=== PATIENT | male | born 1990 | race Caucasian/White ===

== ENCOUNTER 2018-05-03 17:13 | Emergency (ER) | payer SELFPAY ==
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
[2018-05-03] MEDS ORDERED: HYDROCODONE/APAP 5/325 MG TAB ONE (18:40)
[2018-05-03] MEDS ORDERED: IBUPROFEN 400 MG TAB ONE (18:40)
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
[2018-05-03 20:27] VITALS: BP 124/75; TEMP 97.7; O2SAT 98
== END 2018-05-03 19:01 | disposition home or self-care (01) ==
LOC: ER 17:13
DX: S92.412A Displaced fracture of proximal phalanx of left great toe, initial encounter for closed fracture (principal); V28.0XXA Motorcycle driver injured in noncollision transport accident in nontraffic accident, initial encounter; F17.210 Nicotine dependence, cigarettes, uncomplicated
CPT/HCPCS: 99284

== ENCOUNTER 2018-05-22 15:25 | Emergency (ER) | payer SELFPAY ==
[2018-05-22] MEDS ORDERED: MORPHINE 4 MG/ML SYR ONE ×2 (15:42→16:26)
[2018-05-22] MEDS ORDERED: ONDANSETRON 4 MG/2 ML VIAL ONE (15:42)
[2018-05-22] MEDS ORDERED: CEFAZOLIN/SWI 1gm 1 GM/10 ML SYR IVP ONE (15:50)
[2018-05-22 15:55] LABS: Absolute Monocytes 0.7 K/uL (0.1-1.3); Absolute Neutrophil 2.4 K/uL (1.8-8.0); Basophils % 0.8 % (0-1.3); Eosinophils % 1.5 % (0-4.4); Hematocrit 44.2 % (39.6-49.0); Lymphocytes % 47.7 % (15.3-44.8); MCH 31.6 pg (27.0-35.0); MCV 93.4 fL (80-100); MPV 9.1 fL (7.6-11.3); Monocytes % 11.6 % (3.3-12.3); RBC Red Blood Cell Count 4.73 M/uL (4.33-5.43)
[2018-05-22] MEDS ORDERED: CEFAZOLIN/SWI 1gm 1 GM/10 ML SYR ONE (16:05)
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
[2018-05-22 16:08] LABS: BUN Blood Urea Nitrogen 16 mg/dL (7-18); Bicarbonate 28 mmol/L (21-32); Glucose Level 120 mg/dL (74-106); Potassium 3.5 mmol/L (3.5-5.1); Sodium Level 141 mmol/L (136-145)
[2018-05-22] MEDS ORDERED: MEPERIDINE HCL 50 MG/ML AMP ONE (16:29)
[2018-05-22] MEDS ORDERED: MEPERIDINE HCL 25 MG/0.5 ML ONE (16:29)
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
[2018-05-22] MEDS ORDERED: FENTANYL CITR 100 MCG/2 ML ONE (17:14)
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
[2018-05-22 17:58] VITALS: O2SAT 100
[2018-05-22 18:00] VITALS: BP 123/85; TEMP 97.8
== END 2018-05-22 18:03 | disposition home or self-care (01) ==
LOC: ER 15:25
DX: S60.519A Abrasion of unspecified hand, initial encounter (principal); S80.219A Abrasion, unspecified knee, initial encounter; V28.4XXA Motorcycle driver injured in noncollision transport accident in traffic accident, initial encounter
CPT/HCPCS: 36415; 70450; 71260; 72125; 74177; 80048; 85025; 86850; 86900; 86901; 96374; 96375; 99285; J0690; J2175; J2405; J3010; Q9967

== ENCOUNTER 2018-11-14 13:49 | Emergency (ER) | payer SELFPAY ==
--- NOTE | 2018-11-14 15:40 | RAD REPORT ---
EXAM DESCRIPTION: US - Scrotum Testicles - 11/14/2018 3:16 pm CLINICAL HISTORY: Scrotal pain COMPARISON: None FINDINGS: Right testicle measures 5.3 x 2.4 x 4.6 centimeters. Echotexture is homogeneous. Normal bl ood flow Left testicle measures 5.3 x 1.9 x 3.5 centimeters. Echotexture is homogeneous. Normal blood flow The epididymides are normal in size and echotexture. Normal blood flow is seen. Two right spermatoceles with the largest measuring 8 millimeters Right varicocele IMPRESSION: Right varicocele Right spermatoceles
--- NOTE | 2018-11-14 17:03 | ER ---
Nurse's Notes [facility] Name: Tom De Jesus Age: 28 yrs Sex: Male : 1990 Arrival Date: 11/14/2018 Time: 13:51 Bed 6 Private MD: Diagnosis: Spermatocele of epididymis, unspecified;Varicocele Presentation: 11/14 14:01 Presenting complaint: Patient states: pain around groin area for the past week, ch happened while I was lifting something heavy. Transition of care: patient was not received from another setting of care. Onset of symptoms was November 07, 2018. Risk Assessment: Do you want to hurt yourself or someone else? Patient reports no desire to harm self or others. Initial Sepsis Screen: Does the patient meet any 2 criteria? No. Patient's initial sepsis screen is negative. Does the patient have a suspected source of infection? No. Patient's initial sepsis screen is negative. Care prior to arrival: None. 14:01 Method Of Arrival: Ambulatory 14:01 Acuity: STEVE 4 ch Triage Assessment: 14:02 General: Appears in no apparent distress. comfortable, Behavior is calm, cooperative, ch appropriate for age. Pain: Complains of pain in pelvis Pain currently is 4 out of 10 on a pain scale. Historical: - Allergies: 14:02 No Known Allergies; - Home Meds: 14:02 None [Active]; ch - PMHx: 14:02 None; ch - PSHx: 14:02 None; - Immunization history:: Adult Immunizations up to date, Flu vaccine is not up to date. - Social history:: Smoking status: Patient uses tobacco products, smokes one-half pack cigarettes per day, Patient uses alcohol, occasionally. - Ebola Screening: : Patient negative for fever greater than or equal to 101.5 degrees Fahrenheit, and additional compatible Ebola Virus Disease symptoms Patient denies exposure to infectious person Patient denies travel to an Ebola-affected area in the 21 days before illness onset No symptoms or risks identified at this time. Screenin:39 Abuse screen: Denies threats or abuse. Nutritional screening: No deficits noted. tw2 Tuberculosis screening: No symptoms or risk factors identified. Fall Risk None identified. Assessment: 14:39 General: Appears in no apparent distress. Behavior is appropriate for age. Pain: tw2 Complains of pain in pelvis. Neuro: Level of Consciousness is awake, alert, obeys commands, Oriented to person, place, time, situation. Cardiovascular: Patient's skin is warm and dry. Respiratory: Airway is patent Respiratory effort is even, unlabored, Respiratory pattern is regular, symmetrical. GI: No signs and/or symptoms were reported involving the gastrointestinal system. : Reports groin pain after lifting something heavy a week ago. EENT: No signs and/or symptoms were reported regarding the EENT system. Derm: No signs and/or symptoms reported regarding the dermatologic system. Musculoskeletal: Range of motion: intact in all extremities. 14:56 Reassessment: Patient appears in no apparent distress at this time. No changes from tw2 previously documented assessment. Patient and/or family updated on plan of care and expected duration. Pain level reassessed. Patient is alert, oriented x 3, equal unlabored respirations, skin warm/dry/pink. 15:52 Reassessment: Patient appears in no apparent distress at this time. No changes from tw2 previously documented assessment. Patient and/or family updated on plan of care and expected duration. Pain level reassessed. Patient is alert, oriented x 3, equal unlabored respirations, skin warm/dry/pink. 17:14 Reassessment: Patient appears in no apparent distress at this time. No changes from tw2 previously documented assessment. Patient and/or family updated on plan of care and expected duration. Pain level reassessed. Patient is alert, oriented x 3, equal unlabored respirations, skin warm/dry/pink. Vital Signs: 14:02 BP 121 / 78; Pulse 64; Resp 14; Temp 99.7; Pulse Ox 99% on R/A; Weight 70.31 kg; Height 5 ft. 10 in. (177.80 cm); Pain 5/10; 14:56 BP 115 / 70; Pulse 69; Resp 17; Pulse Ox 98% on R/A; tw2 15:52 BP 129 / 76; Pulse 54; Resp 16; Pulse Ox 99% on R/A; tw2 17:14 BP 122 / 77; Pulse 62; Resp 17; Pulse Ox 99% on R/A; tw2 14:02 Body Mass Index 22.24 (70.31 kg, 177.80 cm) ED Course: 13:51 Patient arrived in ED. as 14:01 Triage completed. ch 14:02 Arm band placed on left wrist. Patient placed in an exam room, on a stretcher. ch 14:04 Placed in gown. Bed in low position. Adult w/ patient. Pulse ox on. NIBP on. tw2 14:09 Treasure Restrepo RN is Primary Nurse. tw2 14:29 Angel Stanton MD is Attending Physician. kdr 15:16 Scrotum Testicles In Process Unspecified. EDMS 17:15 No provider procedures requiring assistance completed. Patient did not have IV access tw2 during this emergency room visit. Administered Medications: 17:11 Drug: Offerle (7.5 mg-325 mg) 1 tabs Route: PO; tw2 17:15 Follow up: Response: No adverse reaction; Pain is decreased tw2 Outcome: 17:03 Discharge ordered by . kdr 17:15 Discharged to home ambulatory, with significant other. tw2 17:15 Condition: stable 17:15 Discharge instructions given to patient, significant other, Instructed on discharge instructions, follow up and referral plans. no drinking with medication, no driving heavy equipment, medication usage, Demonstrated understanding of instructions, follow-up care, medications, Prescriptions given X 1. 17:15 Patient left the ED. tw2 Signatures: Dispatcher [employer] EDMS Susan Yun, ANNA CASTILLO Angel Stanton MD MD kdr Symone Stubbs as Treasure Restrepo RN RN tw2
--- NOTE | 2018-11-14 17:03 | EDPHYS ---
Physician Documentation [facility] Name: Tom De Jesus Age: 28 yrs Sex: Male : 1990 Arrival Date: 11/14/2018 Time: 13:51 Bed 6 Private MD: ED Physician Angel Stanton HPI: 11/14 17:38 This 28 yrs old Male presents to ER via Ambulatory with complaints of Groin kdr Pain. 17:38 The patient presents with scrotal pain, of the right side, in the area of the kdr epidydimis, without swelling, without erythema. Onset: The symptoms/episode began/occurred suddenly, 5 day(s) ago. Modifying factors: The symptoms are alleviated by remaining still, the symptoms are aggravated by movement, pressure. Pain is worse at night - wakes him up at night. Historical: - Allergies: 14:02 No Known Allergies; ch - Home Meds: 14:02 None [Active]; ch - PMHx: 14:02 None; ch - PSHx: 14:02 None; ch - Immunization history:: Adult Immunizations up to date, Flu vaccine is not up to date. - Social history:: Smoking status: Patient uses tobacco products, smokes one-half pack cigarettes per day, Patient uses alcohol, occasionally. - Ebola Screening: : Patient negative for fever greater than or equal to 101.5 degrees Fahrenheit, and additional compatible Ebola Virus Disease symptoms Patient denies exposure to infectious person Patient denies travel to an Ebola-affected area in the 21 days before illness onset No symptoms or risks identified at this time. ROS: 17:38 Constitutional: Negative for fever, chills, and weight loss, Eyes: Negative for injury, kdr pain, redness, and discharge. 17:38 : Positive for testicular pain of the right testicle and right femoral area. Exam: 17:38 Constitutional: This is a well developed, well nourished patient who is awake, alert, kdr and in no acute distress. 17:38 : Male external genitalia: Circumcision noted. penile discharge, is absent, tenderness, is palpated in the right inguinal area, of the epididymis area, that is mild. Vital Signs: 14:02 BP 121 / 78; Pulse 64; Resp 14; Temp 99.7; Pulse Ox 99% on R/A; Weight 70.31 kg; Height 5 ft. 10 in. (177.80 cm); Pain 5/10; 14:56 BP 115 / 70; Pulse 69; Resp 17; Pulse Ox 98% on R/A; tw2 15:52 BP 129 / 76; Pulse 54; Resp 16; Pulse Ox 99% on R/A; tw2 17:14 BP 122 / 77; Pulse 62; Resp 17; Pulse Ox 99% on R/A; tw2 14:02 Body Mass Index 22.24 (70.31 kg, 177.80 cm) MDM: 17:03 Patient medically screened. kdr 17:38 Data reviewed: vital signs, nurses notes, radiologic studies. Counseling: I had a kdr detailed discussion with the patient and/or guardian regarding: the historical points, exam findings, and any diagnostic results supporting the discharge/admit diagnosis, radiology results, the need for outpatient follow up. 11/14 16:23 Order name: Urine Dipstick--Ancillary (enter results) ag 11/14 14:52 Order name: US Scrotum Testicles; Complete Time: 16:12 kdr 11/14 14:52 Order name: Urine Dipstick-Ancillary (obtain specimen); Complete Time: 16:17 kdr Administered Medications: 17:11 Drug: Clarita (7.5 mg-325 mg) 1 tabs Route: PO; tw2 17:15 Follow up: Response: No adverse reaction; Pain is decreased tw2 Disposition: 11/14/18 17:03 Discharged to Home. Impression: Spermatocele of epididymis, unspecified, Varicocele. - Condition is Stable. - Discharge Instructions: Testicular Self-Exam, Varicocele, Spermatocele. - Prescriptions for Tylenol- Codeine #3 300-30 mg Oral Tablet - take 2 tablets by ORAL route every 6 hours As needed; 16 tablet. - Medication Reconciliation Form, Thank You Letter, Prescription Opioid Use, Work release form form. - Follow up: Private Physician; When: 2 - 3 days; Reason: If symptoms return, Further diagnostic work-up, Recheck today's complaints, Continuance of care, Re-evaluation by your physician. - Problem is new. - Symptoms have improved. Signatures: Dispatcher [employer] EDSusan Aldridge RN RN Angel Stanton MD MD [facility] Restrepo, Treasure, RN RN tw2 Corrections: (The following items were deleted from the chart) 17:15 17:03 11/14/2018 17:03 Discharged to Home. Impression: Spermatocele of epididymis, tw2 unspecified; Varicocele. Condition is Stable. Forms are Medication Reconciliation Form, Thank You Letter, Antibiotic Education, Prescription Opioid Use. Follow up: Private Physician; When: 2 - 3 days; Reason: If symptoms return, Further diagnostic work-up, Recheck today's complaints, Continuance of care, Re-evaluation by your physician. Problem is new. Symptoms have improved. kdr
[2018-11-14] MEDS ORDERED: HYDROCODONE/APAP 7.5/325 MG TAB ONE (17:16)
[2018-11-14 17:23] VITALS: TEMP 99.7
[2018-11-14 17:25] VITALS: O2SAT 99
[2018-11-14 17:26] VITALS: BP 122/77
[2018-11-14 20:49] LABS: Urine Blood NEGATIVE (NEG); Urine Glucose NEGATIVE (NEG); Urine Protein NEGATIVE (NEG)
== END 2018-11-14 17:15 | disposition home or self-care (01) ==
LOC: ER 13:49
DX: N43.40 Spermatocele of epididymis, unspecified (principal); I86.1 Scrotal varices; F17.210 Nicotine dependence, cigarettes, uncomplicated
CPT/HCPCS: 76870; 81003; 99284

== ENCOUNTER 2022-05-19 09:09 | Emergency (ER) | payer SELFPAY ==
[2022-05-19 10:18] LABS: Absolute Lymphocytes (CBC) 1.7 K/uL (0.7-4.9); Lymphocytes % 22.5 % (15.3-44.8); MCV 92.1 fL (80-100); MPV 8.4 fL (7.6-11.3); RBC Red Blood Cell Count 4.56 M/uL (4.33-5.43)
--- NOTE | 2022-05-19 10:34 | RAD REPORT ---
EXAM DESCRIPTION: CT - Stone Protocol - 05/19/2022 10:17 am CLINICAL HISTORY: Flank pain. flank pain COMPARISON: No comparisons TECHNIQUE: Axial images were obtained without oral or IV contrast. Lack of contrast limits solid org an and vascular assessment. The [id number] spans the entirety of the system partially obscuring uppermost abdomen and lung bases. Coronal reformatted images were obtained and reviewed. All CT scans are performed using dose optimization technique as appropriate and may include automated exposure control or mA/KV adjustment according to patient size. FINDINGS: The lower lung anderson are clear. Imaged portions of the liver and spleen show no suspicious findings on non-contrast imaging. The panc reas and adrenal glands are normal. No pathologic lymphadenopathy in the abdomen or pelvis. No urinary tract stones or obstructive uropathy. No bowel obstruction, free air, free fluid or abscess. Normal appendix noted. No significant bony abnormality. IMPRESSION: No urinary tract stones or obstructive uropathy.
[2022-05-19 10:36] LABS: Albumin 4.1 g/dL (3.4-5.0); Bilirubin Total 0.6 mg/dL (0.2-1.0); Potassium 3.9 mmol/L (3.5-5.1); Protein, Total 8.3 g/dL (6.4-8.2)
--- NOTE | 2022-05-19 10:55 | RAD REPORT ---
EXAM DESCRIPTION: RAD - Chest Single View - 05/19/2022 10:38 am CLINICAL HISTORY: CHEST PAIN Chest pain. COMPARISON: No comparisons FINDINGS: Portable technique limits examination quality. The lungs are grossly clear. The heart is normal in size. No displaced fractures. IMPRESSION: No acute intrathoracic process suspected.
[2022-05-19 11:25] LABS: Urine Blood Negative (Negative); Urine Glucose Negative (Negative); Urine Protein Negative (Negative); Urine Specific Gravity 1.015 (1.005-1.030)
[2022-05-19 11:40] LABS: Urine Amorphous Sediment TRACE /HPF (NONE SEEN); Urine Bacteria <20 /HPF (NONE SEEN); Urine RBC NONE SEEN /HPF (NONE SEEN)
[2022-05-19] MEDS ORDERED: NA CHLORIDE 0.9% 1,000 ML ONE (12:00)
[2022-05-19] MEDS ORDERED: KETOROLAC 30 MG/ML INJ ONE (12:00)
[2022-05-19] MEDS ORDERED: CYCLOBENZAPRINE 10 MG TAB ONE (12:00)
--- NOTE | 2022-05-19 12:59 | EDPHYS ---
Physician Documentation [facility] Name: Tom De Jesus Age: 32 yrs Sex: Male : 1990 Arrival Date: 05/19/2022 Time: 09:25 Bed 8 Private MD: ED Physician Festus Sweeney HPI: 05/19 10:06 This 32 yrs old Male presents to ER via Ambulatory with complaints of bodyaches, Pain pm1 All Over. 10:06 The patient presents with pain that is acute, with no known mechanism of injury. The pm1 symptoms are located in the low back area and mid back area. Onset: The symptoms/episode began/occurred 1 week(s) ago. The pain does not radiate. Associated signs and symptoms: Pertinent positives: Bodyaches, darkened urine, Pertinent negatives: abdominal pain, dysuria, fever, numbness, tingling, weakness. The problem was sustained from unknown cause, and patient are concerned that he is suffering from kidney stones. Patient without prior ihistory. Historical: - Allergies: 10:08 No Known Allergies; jl7 - Home Meds: 10:08 None [Active]; jl7 - PMHx: 10:08 None; jl7 - PSHx: 10:08 None; jl7 - Immunization history:: Client reports having NOT received the Covid vaccine. - Social history:: Smoking status: Patient reports the use of cigarette tobacco products, smokes one pack cigarettes per day. ROS: 10:29 Eyes: Negative for injury, pain, redness, and discharge, ENT: Negative for injury, pm1 pain, and discharge, Cardiovascular: Negative for chest pain, palpitations, and edema, Respiratory: Negative for shortness of breath, cough, wheezing, and pleuritic chest pain, Abdomen/GI: Negative for abdominal pain, nausea, vomiting, diarrhea, and constipation, Back: Negative for injury and pain, MS/Extremity: Negative for injury and deformity, Skin: Negative for injury, rash, and discoloration. 10:29 Constitutional: Positive for body aches, Negative for fever, poor PO intake. 10:29 Back: Positive for of the left low back, left mid back, right mid back and right low back, pain. 10:29 Neuro: Positive for headache, Negative for numbness, tingling, weakness. 10:29 All other systems are negative. Exam: 10:29 Constitutional: This is a well developed, well nourished patient who is awake, alert, pm1 and in no acute distress. Cardiovascular: Regular rate and rhythm with a normal S1 and S2. No gallops, murmurs, or rubs. Normal PMI, no JVD. No pulse deficits. Respiratory: Lungs have equal breath sounds bilaterally, clear to auscultation and percussion. No rales, rhonchi or wheezes noted. No increased work of breathing, no retractions or nasal flaring. Abdomen/GI: Soft, non-tender, with normal bowel sounds. No distension or tympany. No guarding or rebound. No evidence of tenderness throughout. Skin: Warm, dry with normal turgor. Normal color with no rashes, no lesions, and no evidence of cellulitis. MS/ Extremity: Pulses equal, no cyanosis. Neurovascular intact. Full, normal range of motion. 10:29 Eyes: Exam is negative for acute changes, Pupils: no acute changes, Extraocular movements: no acute changes, Conjunctiva: no acute changes, no injection. 10:29 ENT: Exam is negative for acute changes, Mouth: no acute changes, Lips: normal, moist, Oral mucosa: normal, pink and intact, moist. 10:29 Neck: Exam negative for acute changes. 10:29 Back: pain, that is mild, of the low back area, mid back area, left low back and right low back. 10:29 Neuro: Exam negative for acute changes, Orientation: is normal, Mentation: is normal, Motor: is normal, moves all fours. Vital Signs: 10:03 BP 111 / 79; Pulse 66; Resp 18; Temp 98.3(O); Pulse Ox 100% on R/A; Weight 68.04 kg mb7 (R); Height 5 ft. 10 in. (177.80 cm) (R); 12:00 BP 122 / 79; Pulse 86; Resp 18; Pulse Ox 100% on R/A; ld1 10:03 Body Mass Index 21.52 (68.04 kg, 177.80 cm) mb7 MDM: 09:51 Patient medically screened. pm1 11:22 Data reviewed: vital signs. Data interpreted: Pulse oximetry: on room air is 100 %. pm1 Interpretation: normal. 12:58 Counseling: I had a detailed discussion with the patient and/or guardian regarding: the pm1 historical points, exam findings, and any diagnostic results supporting the discharge/admit diagnosis, lab results, radiology results, the need for outpatient follow up, to return to the emergency department if symptoms worsen or persist or if there are any questions or concerns that arise at home. 05/19 10:01 Order name: CBC with Diff; Complete Time: 10:37 pm05/19 10:01 Order name: CMP; Complete Time: 10:37 pm05/19 10:01 Order name: Urine Microscopic Only; Complete Time: 11:42 pm05/19 10:02 Order name: COVID-19 SARS RT PCR (Document "Date of Onset" if Symptomatic); Complete pm1 Time: 12:58 05/19 10:02 Order name: Flu; Complete Time: 11:11 pm05/19 10:02 Order name: Strep; Complete Time: 11:11 pm05/19 10:01 Order name: CT Stone Protocol; Complete Time: 10:37 pm05/19 10:01 Order name: Chest Single View XRAY; Complete Time: 11:11 pm05/19 10:58 Order name: Throat Culture [facility] 05/19 11:25 Order name: Urine Dipstick-Ancillary; Complete Time: 11:27 [facility] 05/19 11:43 Order name: Urine Culture [facility] 05/19 10:01 Order name: IV Saline Lock; Complete Time: 11:26 pm05/19 10:01 Order name: Labs collected and sent; Complete Time: 11:26 pm05/19 10:01 Order name: Urine Dipstick-Ancillary (obtain specimen); Complete Time: 11:26 pm05/19 11:23 Order name: Ice pack; Complete Time: 11:51 pm1 Administered Medications: 12:00 Drug: NS 0.9% 1000 ml Route: IV; Rate: 1 bolus; Site: right antecubital; ld1 12:00 Drug: TORadol (ketorolac) 30 mg Route: IVP; Site: right antecubital; ld1 12:00 Drug: Flexeril (cyclobenzaprine) 10 mg Route: PO; ld1 Disposition: 14:11 Co-signature as Attending Physician, Festus CHEW was immediately available on-site ms3 in the Emergency Department for consultation in the care of the patient.. Disposition Summary: 05/19/22 12:59 Discharge Ordered Location: Home pm1 Problem: new pm1 Symptoms: have improved pm1 Condition: Stable pm1 Diagnosis - Coronavirus infection, unspecified pm1 Followup: pm1 - With: Emergency Department - When: As needed - Reason: Worsening of condition Followup: pm1 - With: Private Physician - When: 2 - 3 days - Reason: Recheck today's complaints, Continuance of care, Re-evaluation by your physician Discharge Instructions: - Discharge Summary Sheet pm1 - COVID-19 pm1 - COVID-19 Frequently Asked Questions pm1 - 10 Things You Can Do to Manage Your COVID-19 Symptoms at Home - [facility] [place] pm1 - COVID-19: Quarantine vs. Isolation - [facility] [place] pm1 Forms: - Medication Reconciliation Form pm1 - Thank You Letter pm1 - Antibiotic Education pm1 - Prescription Opioid Use pm1 Signatures: Dispatcher [employer] EDMS Epifanio Craig, AUGUST DIRECTOR OF MEDICAL REVIEW pm1 Ruthann Stearns RN RN jl7 Festus Sweeney DO DO ms3 Rebecca Connelly RN RN ld1 Corrections: (The following items were deleted from the chart) 12:59 11:22 Counseling: I had a detailed discussion with the patient and/or guardian pm1 regarding: the historical points, exam findings, and any diagnostic results supporting the discharge/admit diagnosis, lab results, radiology results, the need for outpatient follow up, a family practitioner, to return to the emergency department if symptoms worsen or persist or if there are any questions or concerns that arise at home, pm1
--- NOTE | 2022-05-19 12:59 | ER ---
Nurse's Notes [facility] Name: Tom De Jesus Age: 32 yrs Sex: Male : 1990 Arrival Date: 05/19/2022 Time: 09:25 Bed 8 Private MD: Diagnosis: Coronavirus infection, unspecified Presentation: 05/19 10:06 Chief complaint: Patient states: Body aches x 1 week. Coronavirus screen: Vaccine jl7 status: Patient reports being unvaccinated. muscle pain, Client presents with at least one sign or symptom that may indicate coronavirus-19. Standard/surgical mask placed on the client. Provider contacted for isolation considerations. Ebola Screen: No symptoms or risks identified at this time. Initial Sepsis Screen: Does the patient meet any 2 criteria? No. Patient's initial sepsis screen is negative. Does the patient have a suspected source of infection? No. Patient's initial sepsis screen is negative. Risk Assessment: Do you want to hurt yourself or someone else? Patient reports no desire to harm self or others. Onset of symptoms was May 05, 2022. 10:06 Method Of Arrival: Ambulatory jl7 10:06 Acuity: STEVE 3 jl7 Triage Assessment: 10:08 General: Appears in no apparent distress. uncomfortable, Behavior is calm, cooperative, jl7 appropriate for age. Pain: Complains of pain in all over Pain currently is 7 out of 10 on a pain scale. Historical: - Allergies: 10:08 No Known Allergies; jl7 - Home Meds: 10:08 None [Active]; jl7 - PMHx: 10:08 None; jl7 - PSHx: 10:08 None; jl7 - Immunization history:: Client reports having NOT received the Covid vaccine. - Social history:: Smoking status: Patient reports the use of cigarette tobacco products, smokes one pack cigarettes per day. Screenin:00 Abuse screen: Denies threats or abuse. Denies injuries from another. Nutritional ld1 screening: No deficits noted. Tuberculosis screening: No symptoms or risk factors identified. Fall Risk None identified. Assessment: 12:00 General: Appears in no apparent distress. uncomfortable, Behavior is calm, cooperative, ld1 appropriate for age. Pain: Complains of pain in all over Pain does not radiate. Pain currently is 6 out of 10 on a pain scale. Neuro: Level of Consciousness is awake, alert, obeys commands, Oriented to person, place, time, situation. Cardiovascular: Capillary refill < 3 seconds Patient's skin is warm and dry. Respiratory: Airway is patent Respiratory effort is even, unlabored. GI: Abdomen is flat, non-distended. : No signs and/or symptoms were reported regarding the genitourinary system. EENT: No signs and/or symptoms were reported regarding the EENT system. Derm: No signs and/or symptoms reported regarding the dermatologic system. Musculoskeletal: No signs and/or symptoms reported regarding the musculoskeletal system. Vital Signs: 10:03 BP 111 / 79; Pulse 66; Resp 18; Temp 98.3(O); Pulse Ox 100% on R/A; Weight 68.04 kg [facility] (R); Height 5 ft. 10 in. (177.80 cm) (R); 12:00 BP 122 / 79; Pulse 86; Resp 18; Pulse Ox 100% on R/A; ld1 10:03 Body Mass Index 21.52 (68.04 kg, 177.80 cm) [facility] ED Course: 09:25 Patient arrived in ED. am2 09:29 Epifanio Craig NP is PHCP. pm1 09:29 Festus Sweeney DO is Attending Physician. pm1 10:03 Patient has correct armband on for positive identification. 7 10:08 Triage completed. jl7 10:08 Arm band placed on right wrist. Patient placed in waiting room, Patient notified of [facility] wait time. 10:10 Initial lab(s) drawn, by ED staff, sent to lab. Inserted saline lock: 20 gauge in right jl antecubital area, using aseptic technique. Blood collected. inserted by ANUJ Romano. 10:20 CT Stone Protocol In Process Unspecified. EDMS 10:39 Chest Single View XRAY In Process Unspecified. EDMS 11:26 Urine Microscopic Only Sent. 7 11:51 Rebecca Connelly, ANNA is Primary Nurse. ld1 11:51 COVID-19 SARS RT PCR (Document "Date of Onset" if Symptomatic) Sent. ld1 12:00 No provider procedures requiring assistance completed. ld1 13:16 IV discontinued, intact, bleeding controlled, No redness/swelling at site. Pressure eh3 dressing applied. Administered Medications: 12:00 Drug: NS 0.9% 1000 ml Route: IV; Rate: 1 bolus; Site: right antecubital; ld1 12:00 Drug: TORadol (ketorolac) 30 mg Route: IVP; Site: right antecubital; ld1 12:00 Drug: Flexeril (cyclobenzaprine) 10 mg Route: PO; ld1 Medication: 12:00 VIS not applicable for this client. ld1 Outcome: 12:59 Discharge ordered by MD. pm1 13:17 Discharged to home ambulatory. eh3 13:17 Condition: stable 13:17 Discharge instructions given to patient, family, Instructed on discharge instructions, follow up and referral plans. Demonstrated understanding of instructions, follow-up care. 13:17 Patient left the ED. eh3 Signatures: Dispatcher [employer] EDMS Epifanio Craig, AUGUST MANUFACTURING QUALITY INSPECTOR pm1 Ruthann Stearns RN RN jl7 Karissa Avendaño Lauren, RN RN ld1 Danelle Andrews mb7 Padmini Fierro eh3
[2022-05-19 13:32] VITALS: TEMP 98.3; O2SAT 100
[2022-05-19 13:34] VITALS: BP 122/79
== END 2022-05-19 13:17 | disposition home or self-care (01) ==
LOC: ER 09:09
DX: U07.1 COVID-19 (principal); F17.210 Nicotine dependence, cigarettes, uncomplicated
CPT/HCPCS: 36415; 71045; 74176; 76377; 80053; 81003; 81015; 85025; 87070; 87081; 87086; 87088; 87804; J7030; U0003

== ENCOUNTER 2023-03-11 05:38 | Emergency (ER) | payer SELFPAY ==
--- OUTSIDE RECORDS SUMMARY | 2023-03-11 05:41 | XMS REPORT | Continuity of Care Document ---
:1990 Author Organization [facility] t Address [address] [place] [address] [place] [id number] Care Team Providers Name Role Phone Unavailable Unavailable Unavailable Problems This patient has no known problems. Allergies, Adverse Reactions, Alerts This patient has no known allergies or adverse reactions. Medications This patient has no known medications. Procedures This patient has no known procedures. Results Test Description Test Time Test Comments Results Result Comments Source INFLUENZA A 2019-11-07 03:44:00 Test Item Value Reference Range Interpretation Comme nts FLU A (test code = FLU A) NEGATIVE NEGATIVE FLU B (test code = FLU B) POSITIVE NEGATIVE FLU INTERNAL POSITIVE CNTRL (test code = FLU IPC) PASS PASS INFLUENZA LOT # (test code = FLULOT) [id number] INFLUENZA EXPIRATION DATE (test code = FLUEXP) 08-11-2021 XR Finger(s) 2+ Views [id number] 15:42:06Patient: HUMAIRA VALDEZ Date/Time04/06/2019 15:26 CDTReason for ExamInjuryReportRight fifth finger 2 viewsHISTORY: Injury with painCOMPARISON: NoneTECHNIQUE: PA and lateral views providedFINDINGS: Bony alignment appears intact as profiled. No fracture evident. No appreciable arthritic changes.IMPRESSION: No radiographic evidence of acute osseous pathology. Final Dictated by:MD Laurie, Quin DT/TM: 04/06/2019 3:41 pmSigned by: MD Laurie, Jo-Ann (Electronic Signature): 04/06/2019 3:42 pm
[2023-03-11 06:58] LABS: Absolute Lymphocytes (CBC) 0.6 K/uL (0.7-4.9); Hematocrit 46.3 % (39.6-49.0); Lymphocytes % 4.8 % (15.3-44.8); MCV 93.5 fL (80-100); MPV 8.7 fL (7.6-11.3); RBC Red Blood Cell Count 4.96 M/uL (4.33-5.43)
[2023-03-11] MEDS ORDERED: KETOROLAC 30 MG/ML INJ ONE (07:13)
[2023-03-11] MEDS ORDERED: MORPHINE 4 MG/ML SYR ONE (07:13)
[2023-03-11 07:14] LABS: Albumin 4.4 g/dL (3.4-5.0); Bilirubin Total 0.9 mg/dL (0.2-1.0); Potassium 3.7 mEq/L (3.5-5.1); Protein, Total 7.8 g/dL (6.4-8.2)
[2023-03-11] MEDS ORDERED: FAMOTIDINE 20 MG/2 ML VIAL IV ONE (07:14)
[2023-03-11] MEDS ORDERED: PANTOPRAZOLE 40 MG INJ ONE (07:14)
[2023-03-11] MEDS ORDERED: NA CHLORIDE 0.9% 1,000 ML ONE (07:14)
[2023-03-11] MEDS ORDERED: ONDANSETRON 4 MG/2 ML VIAL ONE (07:14)
--- NOTE | 2023-03-11 07:51 | RAD REPORT ---
EXAM DESCRIPTION: CTAbdomen Pelvis W Contrast - 03/11/2023 7:35 am CLINICAL HISTORY: ABD PAIN COMPARISON: No comparisons TECHNIQUE: CT of the abdomen and pelvis was performed. All CT scans are performed using dose optimization technique as appropriate and may include automated exposure control or mA/KV adjustment according to patient size. FINDINGS: Lower chest: No acute abnormality. Liver: Several low-density liver lesions are noted that have benign imaging features. Biliary: No biliary ductal dilatation. Stomach: No significant focal abnormality. Duodenum: No significant focal abnormality. Pancreas: No significant abnormality. Spleen: No significant abnormality. Adrenal: No suspicious lesions. Kidney/ureter: No hydronephrosis. No renal calculi. Subcentimeter left lower pole renal lesion which is statistically benign. Retroperitoneum: No retroperitoneal adenopathy. Vascular: No aneurysm. Bowel: No significant focal abnormality. Normal appendix. Peritoneum: No ascites or free air. Bladder: Grossly unremarkable. Reproductive: No adnexal masses. Bones: No acute fracture. Other: n/a IMPRESSION: No acute intra-abdominal or pelvic finding. Normal appendix.
--- NOTE | 2023-03-11 08:33 | EDPHYS ---
Physician Documentation [facility] Name: Tom De Jesus Age: 33 yrs Sex: Male : 1990 Arrival Date: 03/11/2023 Time: 05:38 Bed 8 Private MD: ED Physician Rafael Almanza HPI: 03/11 05:57 This 33 yrs old Male presents to ER via Unassigned with complaints of sp4 Abdominal Burn, Nausea/Vomiting, Abdominal Pain. 05:57 33-year-old male with no significant past medical history, history of chronic marijuana sp4 use, presents with diffuse abdominal pain described as burning type pain associated with nausea and vomiting. Patient states pain started 1 month ago. Patient states he has daily pain for over 1 month associated with sporadic vomiting which is worse this morning. Reports marijuana use daily but does not. . 07:03 . sp4 Historical: - Allergies: 06:00 No Known Allergies; kl - Home Meds: 06:00 None [Active]; kl - PMHx: 06:00 None; kl - PSHx: 06:00 None; kl - Immunization history:: Adult Immunizations not up to date. - Social history:: Smoking status: Patient reports the use of cigarette tobacco products, smokes one pack cigarettes per day. reports Marijuana usage daily. - Family history:: not pertinent. ROS: 07:03 Constitutional: Negative for fever, chills, and weight loss, Eyes: Negative for injury, sp4 pain, redness, and discharge, ENT: Negative for injury, pain, and discharge, Neck: Negative for injury, pain, and swelling, Cardiovascular: Negative for chest pain, palpitations, and edema, Respiratory: Negative for shortness of breath, cough, wheezing, and pleuritic chest pain, Abdomen/GI: Negative for diarrhea, and constipation, positive for abdominal pain nausea vomiting Back: Negative for injury and pain, : Negative for injury, bleeding, discharge, and swelling, MS/Extremity: Negative for injury and deformity, Skin: Negative for injury, rash, and discoloration, Neuro: Negative for headache, weakness, numbness, tingling, and seizure, Psych: Negative for depression, anxiety, Allergy/Immunology: Negative for hives, rash, and allergies Endocrine: Negative for neck swelling, polydipsia, polyuria, polyphagia, and weight changes Hematologic/Lymphatic: Negative for swollen nodes, abnormal bleeding, and unusual bruising Exam: 07:03 Constitutional: This is a well developed, well nourished patient who is awake, alert, sp4 and in no acute distress. Head/Face: Normocephalic, atraumatic. Eyes: Pupils equal round and reactive to light, extra-ocular motions intact. Lids and lashes normal. Conjunctiva and sclera are not injected. Cornea within normal limits. Periorbital areas with no swelling, redness, or edema. ENT: Nares patent. No nasal discharge, no septal abnormalities noted. Tympanic membranes are normal and external auditory canals are clear. Oropharynx with no redness, swelling, or masses, exudates, or evidence of obstruction, uvula midline. Mucous membranes moist. Neck: Trachea midline, no thyromegaly or masses palpated, and no cervical lymphadenopathy. Supple, full range of motion without nuchal rigidity, or vertebral point tenderness. No Meningismus. Chest/axilla: Normal chest wall appearance and motion. Nontender with no deformity. No lesions are appreciated. Cardiovascular: Regular rate and rhythm with a normal S1 and S2. No gallops, murmurs, or rubs. Normal PMI, no JVD. No pulse deficits. Respiratory: Lungs have equal breath sounds bilaterally, clear to auscultation and percussion. No rales, rhonchi or wheezes noted. No increased work of breathing, no retractions or nasal flaring. Abdomen/GI: Soft, diffuse abdominal tenderness, normoactive bowel sounds, no rigidity or rebound, nondistended abdomen Back: No spinal tenderness. No costovertebral tenderness. Male : Normal genitalia with no discharge or lesions. Skin: Warm, dry with normal turgor. Normal color with no rashes, no lesions, and no evidence of cellulitis. MS/ Extremity: Pulses equal, no cyanosis. Neurovascular intact. Full, normal range of motion. Neuro: Awake and alert, GCS 15, oriented to person, place, time, and situation. Cranial nerves II-XII grossly intact. Motor strength 5/5 in all extremities. Sensory grossly intact. Psych: Awake, alert, with orientation to person, place and time. Behavior, mood, and affect are within normal limits Vital Signs: 05:59 BP 127 / 76; Pulse 58; Resp 18; Temp 97.7(O); Pulse Ox 97% on R/A; Weight 66.68 kg (M); kl Height 5 ft. 7 in. ; Pain 10/10; 07:19 BP 106 / 57; Pulse 59; Resp 16; Pulse Ox 99% ; hb 08:15 BP 116 / 68; Pulse 60; Resp 16; Pulse Ox 99% on R/A; hb 05:59 Body Mass Index 23.02 (66.68 kg, 170.18 cm) kl 05:59 Pain Scale: Adult kl MDM: 06:01 Patient medically screened. sp4 07:03 Differential diagnosis: Diffuse abdominal pain, cannabis hyperemesis syndrome. Data sp4 reviewed: vital signs, nurses notes, lab test result(s), amylase and lipase, CBC, electrolytes, hepatic panel, urinalysis, urine drug screen, radiologic studies, CT scan. Transition of care: After a detail discussion of the patient's case, care is transferred to Rafael Almanza MD. ED course: Patient care was transferred to Dr. Tello . 08:32 ED course: Pt feeling better, inés po, wanting to go home. MJ hyperemesis discussed. jr11 03/11 05:57 Order name: CBC with Diff sp4 03/11 05:57 Order name: CMP; Complete Time: 08:13 sp4 03/11 05:57 Order name: Lipase; Complete Time: 08:13 sp4 03/11 05:57 Order name: CT Abd/Pelvis - IV Contrast Only; Complete Time: 08:13 sp4 03/11 05:57 Order name: IV Saline Lock; Complete Time: 06:41 sp4 03/11 05:57 Order name: Labs collected and sent; Complete Time: 06:41 sp4 Administered Medications: 07:00 Drug: NS 0.9% IV 1000 ml Route: IV; Rate: 1 bolus; Site: right antecubital; bp 07:00 Drug: Famotidine IVP 20 mg Route: IVP; Site: right antecubital; bp 07:00 Drug: Ondansetron IVP 4 mg Route: IVP; Site: right antecubital; bp 07:00 Drug: morphine IVP or IV 4 mg Route: IVP; Infused Over: 4 mins; Site: right antecubital;bp 07:00 Drug: Ketorolac IVP 30 mg Route: IVP; Site: right antecubital; bp 07:00 Drug: Pantoprazole IVP 40 mg Route: IVP; Site: right antecubital; bp Disposition Summary: 03/11/23 08:33 Discharge Ordered Location: Home [facility] Condition: Stable jr11 Diagnosis - Nausea with vomiting, unspecified jr11 - Abdominal pain, Generalized jr11 Discharge Instructions: - Discharge Summary Sheet jr11 - Abdominal Pain, Adult jr11 - Nausea and Vomiting, Adult jr11 - Cannabinoid Hyperemesis Syndrome jr11 Forms: - Medication Reconciliation Form jr11 - Thank You Letter jr11 - Antibiotic Education jr11 - Prescription Opioid Use jr11 Prescriptions: - Zofran 4 mg Oral Tablet - take 1 tablet by ORAL route every 12 hours As needed; 20 tablet; Refills: 0, jr11 Product Selection Permitted Signatures: Dispatcher [employer] EDKayy Raza RN RN kl Peltier, Brian, RN RN bp Rosillo, Jose, MD MD jr11 Edwin Torres MD MD sp4 Corrections: (The following items were deleted from the chart) 06:42 05:57 Urinalysis+U.LAB.BRZ ordered. EDMS EDMS
--- NOTE | 2023-03-11 08:33 | ER ---
Nurse's Notes [facility] Name: Tom De Jesus Age: 33 yrs Sex: Male : 1990 Arrival Date: 03/11/2023 Time: 05:38 Bed 8 Private MD: Diagnosis: Nausea with vomiting, unspecified;Abdominal pain, Generalized Presentation: 03/11 05:59 Chief complaint: Patient states: abdominal pain off and on x 1 month reports emesis x 3 kl this am. Coronavirus screen: Vaccine status: Patient reports being unvaccinated. Ebola Screen: Patient negative for fever greater than or equal to 101.5 degrees Fahrenheit, and additional compatible Ebola Virus Disease symptoms. Initial Sepsis Screen: Does the patient meet any 2 criteria? No. Patient's initial sepsis screen is negative. Does the patient have a suspected source of infection? No. Patient's initial sepsis screen is negative. Risk Assessment: Do you want to hurt yourself or someone else? Patient reports no desire to harm self or others. 05:59 Method Of Arrival: Ambulatory 05:59 Acuity: STEVE 3 kl Triage Assessment: 06:01 General: Appears uncomfortable, Behavior is calm, cooperative. Pain: Complains of pain kl in abdomen Pain currently is 10 out of 10 on a pain scale. Quality of pain is described as burning. Respiratory: No deficits noted. Airway is patent Trachea midline Respiratory effort is even, unlabored, Respiratory pattern is regular, symmetrical. GI: Reports lower abdominal pain, upper abdominal pain, bloating, nausea, vomiting. Historical: - Allergies: 06:00 No Known Allergies; kl - Home Meds: 06:00 None [Active]; kl - PMHx: 06:00 None; kl - PSHx: 06:00 None; kl - Immunization history:: Adult Immunizations not up to date. - Social history:: Smoking status: Patient reports the use of cigarette tobacco products, smokes one pack cigarettes per day. reports Marijuana usage daily. - Family history:: not pertinent. Screenin:[facility] ED Fall Risk Assessment (Adult) History of falling in the last 3 months, pf1 including since admission No falls in past 3 months (0 pts) Confusion or Disorientation No (0 pts) Intoxicated or Sedated No (0 pts) Impaired Gait No (0 pts) Mobility Assist Device Used No (0 pt) Altered Elimination No (0 pt) Score/Fall Risk Level 0 - 2 = Low Risk Oriented to surroundings, Maintained a safe environment, Educated pt \T\ family on fall prevention, incl call for assistance when getting out of bed, Assessed \T\ reinforced patient's understanding of fall precautions, Provided non-skid footwear, Hourly rounding (assess needs \T\ fall precautionary measures) done, Used ambulatory aids as needed (educated on \T\ assisted with), Used gait belt as appropriate. Abuse screen: Denies threats or abuse. Nutritional screening: No deficits noted. Tuberculosis screening: No symptoms or risk factors identified. Assessment: 06:00 General: Appears in no apparent distress. comfortable, well groomed, well developed, pf1 Behavior is calm, cooperative, appropriate for age, quiet. Pain: Complains of pain in abdomen Pain began intermittent 1 month. Neuro: No deficits noted. Level of Consciousness is awake, alert, obeys commands, Oriented to person, place, time, situation. Cardiovascular: No deficits noted. Capillary refill < 3 seconds Patient's skin is warm and dry. Respiratory: No deficits noted. Airway is patent Trachea midline Respiratory effort is even, unlabored, Respiratory pattern is regular, symmetrical, Breath sounds are clear bilaterally. GI: Abdomen is flat, non-distended, Reports nausea, vomiting, with abdominal pain. : No deficits noted. No signs and/or symptoms were reported regarding the genitourinary system. 06:00 EENT: No deficits noted. No signs and/or symptoms were reported regarding the EENT pf1 system. Derm: No deficits noted. No signs and/or symptoms reported regarding the dermatologic system. Musculoskeletal: No deficits noted. No signs and/or symptoms reported regarding the musculoskeletal system. 07:19 Reassessment: Patient appears in no apparent distress at this time. Patient and/or hb family updated on plan of care and expected duration. Pain level reassessed. Patient is alert, oriented x 3, equal unlabored respirations, skin warm/dry/pink. 07:42 Reassessment: PT RETURNED FROM CT. bp 08:30 Reassessment: Patient appears in no apparent distress at this time. Patient and/or hb family updated on plan of care and expected duration. Pain level reassessed. Patient is alert, oriented x 3, equal unlabored respirations, skin warm/dry/pink. Patient states symptoms have improved. Vital Signs: 05:59 BP 127 / 76; Pulse 58; Resp 18; Temp 97.7(O); Pulse Ox 97% on R/A; Weight 66.68 kg (M); kl Height 5 ft. 7 in. ; Pain 10/10; 07:19 BP 106 / 57; Pulse 59; Resp 16; Pulse Ox 99% ; hb 08:15 BP 116 / 68; Pulse 60; Resp 16; Pulse Ox 99% on R/A; hb 05:59 Body Mass Index 23.02 (66.68 kg, 170.18 cm) kl 05:59 Pain Scale: Adult ED Course: 05:42 Patient arrived in ED. jj6 05:52 Edwin Torres MD is Attending Physician. sp4 06:00 Triage completed. kl 06:00 Patient has correct armband on for positive identification. Bed in low position. Call pf1 light in reach. 06:41 CBC with Diff Sent. as7 06:41 CMP Sent. as7 06:41 Lipase Sent. as7 06:42 Inserted saline lock: 20 gauge in right antecubital area, using aseptic technique. as7 Blood collected. 07:11 No provider procedures requiring assistance completed. pf1 07:37 CT Abd/Pelvis - IV Contrast Only In Process Unspecified. EDMS 07:37 Xavi Luis, ANNA is Primary Nurse. bp 07:44 Attending Physician role handed off by Edwin Torres MD jr11 07:44 Rafael Almanza MD is Attending Physician. jr11 08:54 IV discontinued, intact, bleeding controlled, No redness/swelling at site. hb Administered Medications: 07:00 Drug: NS 0.9% IV 1000 ml Route: IV; Rate: 1 bolus; Site: right antecubital; bp 07:00 Drug: Famotidine IVP 20 mg Route: IVP; Site: right antecubital; bp 07:00 Drug: Ondansetron IVP 4 mg Route: IVP; Site: right antecubital; bp 07:00 Drug: morphine IVP or IV 4 mg Route: IVP; Infused Over: 4 mins; Site: right antecubital;bp 07:00 Drug: Ketorolac IVP 30 mg Route: IVP; Site: right antecubital; bp 07:00 Drug: Pantoprazole IVP 40 mg Route: IVP; Site: right antecubital; bp Outcome: 08:33 Discharge ordered by MD. dunbar 08:54 Discharged to home ambulatory. hb 08:54 Condition: stable 08:54 Discharge instructions given to patient, Instructed on discharge instructions, follow up and referral plans. medication usage, Demonstrated understanding of instructions, follow-up care, medications, Prescriptions given X 1. 08:54 Patient left the ED. Signatures: Dispatcher [employer] EDMS Kayy Priest, RN RN Abbie Feliciano RN RN Xavi Luis RN RN Meeta Silva Jose, MD MD jr11 Radha wheatley RN RN [facility] Lynn Harris as Edwin Torres MD MD sp4 Corrections: (The following items were deleted from the chart) 06:42 06:41 Urinalysis+U.LAB.BRZ drawn and sent. as7 MALISSALA
[2023-03-11 09:16] VITALS: TEMP 97.7
[2023-03-11 09:22] VITALS: O2SAT 99
[2023-03-11 09:23] VITALS: BP 116/68
[2023-03-11 11:05] LABS: Blood Morphology Comment NOT SEEN (NOT SEEN); Platelet Estimate ADEQ; White Blood Cell Scan OK (OK)
== END 2023-03-11 08:54 | disposition home or self-care (01) ==
LOC: ER 05:38
DX: R10.84 Generalized abdominal pain (principal); R11.2 Nausea with vomiting, unspecified
CPT/HCPCS: 36415; 74177; 80053; 83690; 85025; 96374; 96375; 99284; C9113; J2405; J7030; Q9967

== ENCOUNTER 2024-10-10 18:01 | Emergency (ER) | payer SELFPAY ==
--- OUTSIDE RECORDS SUMMARY | 2024-10-10 18:04 | XMS REPORT | Continuity of Care Document ---
Author Name Unknown Address [address] [facility] [address] [place] [address] [facility] Address [address] [facility] [address] [place] [address] Care Team Providers Care Seat Covers Trimmer Name Role Phone Drew Simon Attending Clinician Unavaila [facility] Physician, No Primary or Family Admitting Clinic alfreda Unavailable Payers Payer Name Policy Type Policy Number Effective Date Expirati on Date Source Allergies, Adverse Reactions, Alerts Allergy Name Allergy Type Status Severity Reaction(s) Onset Date Inactive Date Treating Clinician Comments Source No Known Allergie s DA Active U 2023-11 00:00: 00 [facility] Encounters Start Date/Time End Date/Time Encounter Type Admission Type Attending Clinicians Care Facility Care Department Encounter ID Source 2024-10-03 15:24:00 2024-10-03 19:25:00 Emergency EM Drew Simon [facility] ER [id number] [facility] Results Test Description Test Time Test Comments Results Result Co mments Source - US ABDOMEN LTD 2024-10-03 17:09:[address] [facility] : 1990 Sex: M Patient Name: HUMAIRA VALDEZ Unit No: [id number] EXAMS: CPT CODE: [id number] US ABDOMEN LTD [id number] EXAM DESCRIPTION: US ABDOMEN LTD CLINICAL HISTORY: 34 years Male, RUQ PAIN; ABDOMINAL [id number] COMPARISON: None. FINDINGS: Real-time ultrasound of the right upper quadrant was performed. The visualized portion of the pancreas is within normal limits. The liver is normal in size and echogenicity. There are 2 echogenic foci in the right lobe of liver, 2.1 x 1.8 cm and 1.9 x 1.7 cm, both likely hemangiomas. There is a gallbladder polyp, 0.5 x 0.3 cm. No gallstone or evidence of cholecystitis is seen. The common duct measures 0.2 cm which is within normal limits. The right kidney measures 11.1 x 3.7 x 5.2 cm. There is no evidence of hydronephrosis. IMPRESSION: No evidence of gallstones or cholecystitis Electronically signed by: Dawson ePpper MD 10/03/2024 05:09 PM [facility] at 1709 Reported and signed by: Dawson Pepper MD CC: Emily PLUMMER Technologist: Howard Kearney Trnscrbd D/ (170) [facility] Print D/T: S: 10/03/2024 (1118) Probe: [facility] NAME: HUMAIRA VALDEZ [address] PHYS: [id number] - Emily Christensen [place] [address] : 1990 AGE: 34 SEX: M LOC: [place] PHONE #: [phone] EXAM DATE: 10/03/2024 STATUS: REG ER FAX #: RAD NO: Page 1 Signed Report BASIC METABOLIC [id number] 16:48:00* Test Item Value Reference Range Interpretation Comme nts SODIUM (test code = NA) 138 mmol/L 136-145 N Please revi ew results with caution Methodology has been changed with new instrumentation POTASSIUM (test code = K) 3.6 mmol/L 3.4-5.1 N Please revi ew results with caution Methodology has been changed with new instrumentation CHLORIDE (test code = CL) 102 mmol/L 98-107 N Please revi ew results with caution Methodology has been changed with new instrumentation CARBON DIOXIDE (test code = CO2) 32.0 mmol/L 20-31 H Please re view results with caution Methodology has been changed with new instrumentation GLUCOSE (test code = GLU) 98 mg/dL 74-106 N Please revi ew results with caution Methodology has been changed with new instrumentation BLOOD UREA NITROGEN (test code = BUN) 11 mg/dL 9-23 N Please revi ew results with caution Methodology has been changed with new instrumentation GLOMERULAR FILTRATION RATE (test code = GFR) 104 70-162 N The Glomerular Filtration Rate is a calculated parameterbased on serum Creatinine, patient age and sex. GFR valuesless than 60 mL/min/1.73 square meters are indicative ofChronic Kidney Disease. Values less than 15 mL/min/1.73square meters indicate Kidney failure. The calculation forGFR is based on the CKD-EPI (202) calculation. This formulais race indifferent and is the recommended formula for GFRby the National Kidney Foundation for Adults.The GFR will not calculate if the sex is unknown or if thepatient's age is <18 years. CREATININE (test code = CREAT) 0.99 mg/dL 0.70-1.3 N Please revi ew results with caution Methodology has been changed with new instrumentation CALCIUM (test code = CA) 9.6 mg/dL 8.3-10.6 N Please revi ew results with caution Methodology has been changed with new instrumentation INDEX HEMOLYSIS (test code = HEMINDEX) NEGATIVE Grade See_Comment [Automated messa ge] The system which generated this result transmitted reference range: 0 NEG. The reference range was not used to interpret this result as normal/abnormal. INDEX ICTERIC (test code = ICTINDEX) NEGATIVE Grade See_Comment [Automated messa ge] The system which generated this result transmitted reference range: 0 NEG. The reference range was not used to interpret this result as normal/abnormal. INDEX LIPEMIA (test code = LIPINDEX) NEGATIVE Grade See_Comment [Automated messa ge] The system which generated this result transmitted reference range: 0 NEG. The reference range was not used to interpret this result as normal/abnormal. HEPATIC FUNCTION [id number] 16:48:00* Test Item Value Reference Range Interpretation Comme nts TOTAL PROTEIN (test code = PROT) 8.2 g/dL 5.7-8.2 N Please revi ew results with caution Methodology has been changed with new instrumentation ALBUMIN (test code = ALB) 4.8 g/dL 3.4-5.0 N Please revi ew results with caution Methodology has been changed with new instrumentation GLOBULIN (test code = GLOB) 3.4 G/DL 1.5-3.8 N ALBUMIN/GLOBULIN RATIO (test code = A/G) 1.4 1.1-2.2 N BILIRUBIN TOTAL (test code = BILT) 0.40 mg/dL 0.20-1.10 N Please r eview results with caution Methodology has been changed with new instrumentation BILIRUBIN DIRECT (test code = BILD) 0.2 mg/dL 0.1-0.3 N Please r eview results with caution Methodology has been changed with new instrumentation BILIRUBIN INDIRECT (test code = BILIND) 0.2 MG/DL 0.0-0.7 N SGOT/AST (test code = AST) 22 U/L 0-33 N Please revi ew results with caution Methodology has been changed with new instrumentation SGPT/ALT (test code = ALT) 15 U/L 10-49 N Please revi ew results with caution Methodology has been changed with new instrumentation ALKALINE PHOSPHATASE TOTAL (test code = ALKP) 57 U/L 46-116 N Please revi ew results with caution Methodology has been changed with new instrumentation [id number] 16:48:00* Test Item Value Reference Range Interpretation Comme nts LIPASE (test code = LIP) 29 U/L 12-53 N Please revi ew results with caution Methodology has been changed with new instrumentation UA RFLX MICROSCOPIC [id number] 16:45:00* Test Item Value Reference Range Interpretation Comme nts UA COLOR (test code = COLU) Light-Yellow YELLOW UA APPEARANCE (test code = APPU) CLEAR CLEAR UA GLUCOSE DIPSTICK (test code = DGLUU) NORMAL mg/dL NEGATIVE UA BILIRUBIN DIPSTICK (test code = BILU) NEGATIVE NEGATIVE UA KETONE DIPSTICK (test code = KETU) NEGATIVE mg/dL NEGATIVE UA SPECIFIC GRAVITY (test code = SGU) 1.007 1.001-1.035 N UA BLOOD DIPSTICK (test code = LALITA) NEGATIVE UA PH DIPSTICK (test code = REEMA) 7.0 5.5-7.0 N UA PROTEIN DIPSTICK (test code = PROU) NEGATIVE mg/dL NEGATIVE UA UROBILINOGEN DIPSTICK (test code = URO) NORMAL mg/dL NORMAL UA NITRITE DIPSTICK (test code = ADALGISA) NEGATIVE NEGATIVE UA LEUKOCYTE ESTERASE DIPSTICK (test code = LEUU) NEGATIVE NEGATIVE UA COMMENT (test code = COMU) VOLUME 10-12 ML URINE SPECIMEN DESCRIPTION (test code = UASPEC) Clean Catch UA WBC (test code = WBCU) < 10 #/HPF 0-10 UA SQUAMOUS CELLS (test code = SQU) 0 - 20 #/LPF <100 UA CULTURE NEEDED? (test code = UACULT) Criteria not met Indication for culture: Flank PainURINE SOURCE: Clean CatchCBC W/O DIFF 2024-10-03 16:17:00* Test Item Value Reference Range Interpretation Comme nts WHITE BLOOD CELL (test code = WBC) 6.70 x10 3/uL 4.80-10.80 N RED BLOOD CELL (test code = RBC) 4.06 x10 6/uL 4.7-6.1 L HEMOGLOBIN (test code = HGB) 13.1 G/DL 14.0-17.0 L HEMATOCRIT (test code = HCT) 38.3 % 42-52 L MEAN CELL VOLUME (test code = MCV) 94.3 FL 80-94 H MEAN CELL HGB (test code = MCH) 32.3 PG 27-31 H MEAN CELL HGB CONCENTRATION (test code = MCHC) 34.2 G/DL 33-37 N RED CELL DISTRIBUTION WIDTH (test code = RDW) 11.4 % 11.5-14.5 L PLATELET COUNT (test code = PLT) 309 x10 3/uL 150-450 N MEAN PLATELET VOLUME (test c ode = MPV) 9.7 FL 7.4-10.4 N INFLUENZA [id number] 03:44:00* Test Item Value Reference Range Interpretation Comme nts FLU A (test code = FLU A) NEGATIVE NEGATIVE FLU B (test code = FLU B) POSITIVE NEGATIVE FLU INTERNAL POSITIVE CNTRL (test code = FLU IPC) PASS PASS INFLUENZA LOT # (test code = FLULOT) [id number] INFLUENZA EXPIRATION DATE (t est code = FLUEXP) 08-11-2021 XR Finger(s) 2+ Views [id number] 15:42:06Patient: HUMAIRA VALDEZ Date/Time04/06/2019 15:26 CDTReason for ExamInjuryReportRight fifth finger 2 viewsHISTORY: Injury with painCOMPARISON: NoneTECHNIQUE: PA and lateral views providedFINDINGS: Bony alignment appears intact as profiled. No fracture evident. No appreciable arthritic changes.IMPRESSION: No radiographic evidence of acute osseous pathology. Final Dictated by: MD Sullivan JamesDictated DT/TM: 04/06/2019 3:41 pmSigned by: MD Sullivan JamesSigned (Electronic Signature): 04/06/2019 3:42 pm Notes Date/Time Note Provider Source 2024-10-03 15:48:00 [facility] OR A CAMPUS OF [facility] EMERGENCY PROVIDER REPORT REPORT#:[id number] REPORT STATUS: Signed DATE:10/03/24 TIME: 154 PATIENT: HUMAIRA VALDEZ UNIT #: [id number] ROOM/BED: : 92 AGE: 34 SEX: M PCP PHYS: No Primary or Family Physician SERVICE AUTHOR: Emily Christensen REP SRV REP SRV TM: 1548 * ALL edits or amendments must be made on the electronic/computer document * HPI-General Illness Free Text HPI Notes Free Text HPI Notes History of Present Illness (HPI) The patient presents with a one-week history of postprandial vomiting occurring approximately ten minutes after eating, accompanied by right-sided abdominal pain. The patient reports associated symptoms including nausea, vomiting, nosebleeds during emesis, sweating with hot flashes, and chills. The patient denies fever, recent travel, diarrhea, or flu-like symptoms. Pertinent Positives Vomiting Abdominal pain Nausea Nosebleed with vomiting Sweating Hot flashes Chills Pertinent Negatives No fever No recent travel No diarrhea No cough No congestion No sore throat No inflammatory bowel disease Physical Exam Default A - ROS - All Negative unless stated/specified above Head - Normocephalic, atraumatic. Heart - No cardiomegaly or thrills; regular rate and rhythm, no murmur or gallop. Lungs - Clear to auscultation bilaterally. Mouth - Mucous membranes moist, no mucosal lesions. Musculoskeletal - Normal gait and station. No misalignment, asymmetry, crepitation, defects, tenderness, masses, effusions, decreased range of motion, instability, atrophy or abnormal strength or tone in the head, neck, spine, ribs , pelvis or extremities. Neck - Supple, without lesions, no adenopathy, trachea midline. Neurologic - GCS 15 AxO x 3, CN 2-12 grossly normal. Skin - Good turgor, no rash, unusual bruising or prominent lesions. Teeth/Gums - No obvious caries or periodontal disease. No gingival inflammation or significant resorption. Social History Smoking - Smokes cigarettes Alcohol - Consumes a few drinks daily Drug use - Denies drug use Assessment and Plan General Initial Greet Date/Time 10/03/24 1551 Presentation Chief Complaint Abdominal pain Past Medical History - Adult Stated Complaint ABDOMINAL [id number] Allergies Coded Allergies: No Known Allergies (10/03/24) Physical Exam Vital Signs Vital Signs First Documented: Result Date Time Pulse Ox 99 10/03 154 B/P 127/63 10/03 154 B/P Mean 84 10/03 1546 O2 Delivery Room air 10/03 1546 Temp 36.8 10/03 1546 Pulse 59 10/03 154 Resp 18 10/03 1546 Last Documented: Result Date Time Pulse Ox 97 10/03 1925 B/P 124/81 10/03 1925 Pulse 60 10/03 1925 Resp 18 10/03 1925 B/P Mean 84 10/03 1546 O2 Delivery Room air 10/03 1546 Temp 36.8 10/03 1546 Review of Vital Signs Reviewed Interpretation Diagnostics Lab Results Interpretation Results Laboratory Tests 10/03/24 1609: [Embedded Image Not Available] Laboratory Tests: 10/03 10/03 1628 1609 Chemistry Sodium (136 - 145 mmol/L) 138 Potassium (3.4 - 5.1 mmol/L) 3.6 Chloride (98 - 107 mmol/L) 102 Carbon Dioxide (20 - 31 mmol/L) 32.0 H BUN (9 - 23 mg/dL) 11 Creatinine (0.70 - 1.3 mg/dL) 0.99 Estimated GFR (MDRD) (70 - 162) 104 Glucose (74 - 106 mg/dL) 98 Calcium (8.3 - 10.6 mg/dL) 9.6 Total Bilirubin (0.20 - 1.10 mg/dL) 0.40 Direct Bilirubin (0.1 - 0.3 mg/dL) 0.2 Indirect Bilirubin (0.0 - 0.7 MG/DL) 0.2 AST (0 - 33 U/L) 22 ALT (10 - 49 U/L) 15 Alkaline Phosphatase (46 - 116 U/L) 57 Total Protein (5.7 - 8.2 g/dL) 8.2 Albumin (3.4 - 5.0 g/dL) 4.8 Globulin (1.5 - 3.8 G/DL) 3.4 Albumin/Globulin Ratio (1.1 - 2.2) 1.4 Lipase (12 - 53 U/L) 29 Specimen Appearance (0 NEG Grade) NEGATIVE Specimen Hemolysis (0 NEG Grade) NEGATIVE Hematology WBC (4.80 - 10.80 x10 3/uL) 6.70 RBC (4.7 - 6.1 x10 6/uL) 4.06 L Hgb (14.0 - 17.0 G/DL) 13.1 L Hct (42 - 52 %) 38.3 L MCV (80 - 94 FL) 94.3 H MCH (27 - 31 PG) 32.3 H MCHC (33 - 37 G/DL) 34.2 RDW Coeff of Haydee (11.5 - 14.5 %) 11.4 L Plt Count (150 - 450 x10 3/uL) 309 MPV (7.4 - 10.4 FL) 9.7 Toxicology Urine Opiates Screen (NEGATIVE) NEGATIVE Ur Barbiturates Screen (NEGATIVE) NEGATIVE Ur Phencyclidine Scrn (NEGATIVE) NEGATIVE Ur Amphetamine Screen (NEGATIVE) NEGATIVE MDMA (NEGATIVE) NEGATIVE U Benzodiazepines Scrn (NEGATIVE) NEGATIVE Urine Cocaine Screen (NEGATIVE) NEGATIVE U Cannabinoids Screen (NEGATIVE) NEGATIVE Urines Ur Spec Description Clean Catch Urine Color (YELLOW) Light-Yellow Urine Appearance (CLEAR) CLEAR Urine pH (5.5 - 7.0) 7.0 Ur Specific Vincent (1.001 - 1.035) 1.007 Urine Protein (NEGATIVE mg/dL) NEGATIVE Urine Glucose (UA) (NEGATIVE mg/dL) NORMAL Urine Ketones (NEGATIVE mg/dL) NEGATIVE Urine Blood NEGATIVE Urine Nitrite (NEGATIVE) NEGATIVE Urine Bilirubin (NEGATIVE) NEGATIVE Urine Urobilinogen (NORMAL mg/dL) NORMAL Ur Leukocyte Esterase (NEGATIVE) NEGATIVE Urine WBC (0 - 10 #/HPF) < 10 Ur Squamous Epith Cells (<100 #/LPF) 0 - 20 Urine Culture Screen Criteria not met Urine Comment VOLUME 10-12 ML Recent Impressions: ULTRASOUND - US ABDOMEN LTD 10/03 1600 Report Impression - Status: SIGNED Entered: 10/03/2024 1711 IMPRESSION: No evidence of gallstones or cholecystitis Electronically signed by: Dawson Pepper MD 10/03/2024 05:09 PM [employer] RP Impression By: - Dawson Pepper MD CAT SCAN - CT ABD PELVIS W/CONT 10/03 1735 Report Impression - Status: SIGNED Entered: 10/03/2024 1838 IMPRESSION: 1. No acute intra-abdominal abnormality. 2. Three low-attenuation masses within the right hepatic parenchyma, largest one measuring approximately 1.8 cm, comparison with prior examination dated March 11, 2023 recommended. This could represent cavernous hemangiomas, other etiologies are not excluded. Electronically signed by: Nathaniel Alba MD 10/03/2024 06:36 PM [employer] RP Impression By: STELLA - Nathaniel Alba MD Re-Evaluation MDM Free Text MDM Notes Free Text MDM Notes The patient may have gastritis or peptic ulcer disease, but needs further evaluation by a GI specialist. Immediate concerns like gallbladder or appendix issues need to be ruled out. Order a CT scan and lab work to rule out acute conditions such as gallbladder issues or appendicitis. If those are ruled out, referral to GI for further evaluation of possible gastritis or ulcer. Consider prescribing PPIs or antacids. Patient feeling better after pantoprazole. Discussed with patient CT finding2. Three low-attenuation masses within the right hepatic parenchyma, largest one measuring approximately 1.8 cm, comparison with prior examination dated March 11, 2023 recommended. This could represent cavernous hemangiomas and to follow-up with PCP ED Course Medication(s) Ordered Medication(s) Ordered: Autonomic Drugs Sig/Fanny Start time Last Medication Dose Route Stop Time Status Admin Multi-Ingredient GI 40 ML X1ED STA 10/03 1548 DC 10/03 Drug PO 10/03 1549 1802 Central Nervous System Agents Sig/Fanny Start time Last Medication Dose Route Stop Time Status Admin Tramadol HCl 50 MG X1ED STA 10/03 1551 DC PO 10/03 1552 Diagnostic Agents Sig/Fanny Start time Last Medication Dose Route Stop Time Status Admin Iopamidol 80 ML .STK-MED ONE 10/03 1745 DC 10/03 IV 10/03 1746 1745 Gastrointestinal Drugs Sig/Fanny Start time Last Medication Dose Route Stop Time Status Admin Ondansetron HCl 4 MG X1ED STA 10/03 1551 DC 10/03 IV 10/03 1552 1803 Famotidine 20 MG X1ED STA 10/03 1548 DC 10/03 Sodium Chloride 10 ML IV 10/03 1549 1803 Patient Discharge Departure Vital Signs/Condition Vital Signs First Documented: Result Date Time Pulse Ox 99 10/03 1546 B/P 127/63 10/03 1546 B/P Mean 84 10/03 1546 O2 Delivery Room air 10/03 154 Temp 36.8 10/03 154 Pulse 59 10/03 1546 Resp 18 10/03 1546 Last Documented: Result Date Time Pulse Ox 97 10/03 1925 B/P 124/81 10/03 192 Pulse 60 10/03 1925 Resp 18 10/03 192 B/P Mean 84 11/22 1546 O2 Delivery Room air 10/03 1546 Temp 36.8 10/03 1546 All vital signs available at the time of this entry have been reviewed. Clinical Impression Clinical Impression Primary Impression: Abdominal pain Disposition Decision Discharge )( Discharged to Home Yes )( Time 1858 )( Date 10/03/24 Discharge/Care Plan Counseled Regarding Diagnosis, Lab results, Imaging studies, Prescriptions, Need for follow-up, When to return to ED (Auto) Prescriptions Current Visit Scripts DICYCLOMINE (BENTYL) 10 MG PO Q6H PRN PRN ABDOMINAL PAIN/CRAMPING 10 Days #[address] (PROTONIX) 40 MG PO DAILY 14 Days #30 TABS ONDANSETRON (ZOFRAN) 4 MG PO Q6H PRN PRN NAUSEA/VOMITING 10 Days #15 TABS ONDANSETRON (ZOFRAN) 4 MG PO Q6H PRN PRN NAUSEA/VOMITING ONDANSETRON (ZOFRAN) 4 MG PO Q6H PRN PRN NAUSEA/VOMITING #15 TABS DICYCLOMINE (BENTYL) 10 MG PO Q6H PRN PRN ABDOMINAL PAIN/CRAMPING 7 Days #[address] (PROTONIX) 40 MG PO DAILY 14 Days #30 TABS Patient Instructions Abdominal Pain Additional Instructions Follow up: Please follow-up with your primary care doctor in the next 1-2 days, call tomorrow for an appointment. If you cannot follow-up with your primary care doctor please return to the ED for any urgent issues. Please take the medication as prescribed. If you were given any prescriptions, please take them as directed. Do not drive or operate heavy machinery while taking narcotic medications. Do not drink alcohol while taking antibiotics or narcotics. Keep in mind that all X-Rays, CT's, MRI's and Ultrasounds read after hours may be over-read the following day by the staff radiologist RETURN TO THE EMERGENCY DEPARTMENT NEEDED FOR WORSENING SYMPTOMS. Thank you for allowing us to provide emergent medical care to you or your family member. We consider it a privilege to have served you during your illness or injury. GAYLA MARTHA JEOVANY CON COLIN DOCTOR PARA VERLO EN 1 A 2 IVERSON. SI EMPEORAN MARCELO SINTOMAS REGRESE A LA EMERGENCIA. MARCE POR ELEGIR [facility] PARA COLIN NECESIDADES DE LA EMERGENCIA. If you have no insurance and live in [facility], you may qualify for [facility]. Call to sign up and/or call for a list of requirements. For scheduling appointents call . If you live in [facility] and do not qualify for [facility], contact: CLINICS: [facility] - [phone] [address] [place] [address] [facility] - [phone] [address] [place] [address] DENTAL CLINIC: [id number] (MUST ARRANGE NUECES AIDE FIRST) [phone] [facility]: [id number] [address] (FLOUR BLUFF) OPEN EVERY SUNDAY - [phone] [facility]: [address] [place], [place] [phone] If you live in [facility] and have no insurance, you may be able to be seen at the [facility] health department located at [address] [place] [address]. Call to see if you qualify and/or to schedule an appointment. [facility]: [facility]: [address], [address], [place] Dental Mobile Unit: [address], [address], [place] [facility]: [address] [facility]: [address] [place], [place]: [address] [place], [place]: [address] [facility], [address], [place] Referrals Provider Referral: Conor Moreira MD Address: [address] [place] [address] [address] [place] [address] Provider Referral: Lizzy Florian MD Address: [address] [place] [address] Provider Referral: Yudy Caba MD Address: [address] [place] [address] 3rd [place] [address] at 0495 RPT #:[id number] END OF REPORT [facility]
--- NOTE | 2024-10-10 18:49 | EDPHYS ---
Physician Documentation [facility] Name: Tom De Jesus Age: 34 yrs Sex: Male : 1990 Arrival Date: 10/10/2024 Time: 18:01 Bed 7 Private MD: ED Physician Edwin Torres HPI: 10/10 19:14 This 34 yrs old Male presents to ER via Ambulatory with complaints of Abdominal Pain. sb4 19:14 The patient presents with abdominal pain in the epigastric area, in the right upper sb4 quadrant. Onset: The symptoms/episode began/occurred 6 month(s) ago. The symptoms do not radiate. Associated signs and symptoms: Pertinent positives: nausea and vomiting. The symptoms are described as sharp. Modifying factors: The symptoms are alleviated by nothing, the symptoms are aggravated by food. The patient has been recently seen by a physician: in outside ED, with similar presenting complaints, lab tests were done, CT scan was done, but the patient's symptoms have persisted. Historical: - Allergies: 18:35 No Known Allergies; ss - PMHx: 18:35 None; ss - PSHx: 18:35 None; ss - Immunization history:: Flu vaccine is not up to date. - Infectious Disease History:: Denies. - Social history:: Smoking status: Patient reports the use of cigarette tobacco products, smokes one-half pack cigarettes per day, Patient uses alcohol, occasionally. ROS: 20:36 Constitutional: Negative for fever, chills, and weight loss, sb4 20:36 Abdomen/GI: Positive for abdominal pain, nausea and vomiting, 20:36 All other systems are negative, Exam: 20:36 Head/Face: Normocephalic, atraumatic. Eyes: Extra-ocular motions intact. Periorbital sb4 areas with no swelling, redness, or edema. ENT: Mucous membranes moist. Cardiovascular: Regular rate and rhythm with a normal S1 and S2. Respiratory: No increased work of breathing, no retractions or nasal flaring. Abdomen/GI: Soft, non-tender, no distension. Skin: Warm, dry with normal turgor. Normal color with no rashes, no lesions, and no evidence of cellulitis. 20:36 Constitutional: The patient appears alert, awake, uncomfortable, 20:36 Special observations: complaints out of proportion to exam, Vital Signs: 18:35 BP 112 / 73; Pulse 63; Resp 16; Temp 98.3(O); Pulse Ox 97% on R/A; MAP 85 mmHg; Weight ss 72.57 kg; Height 5 ft. 10 in. ; Pain 5/10; 20:46 BP 109 / 77; Pulse 69; Resp 16 S; Pulse Ox 99% on R/A; lg3 18:35 Body Mass Index 22.96 (72.57 kg, 177.8 cm) ss 18:35 Pain Scale: Adult ss MDM: 18:39 Medical Screening Exam initiated sb4 20:36 Data reviewed: vital signs, nurses notes, lab test result(s), radiologic studies, and sb4 as a result, I will discharge patient. Counseling: I had a detailed discussion with the patient and/or guardian regarding the historical points, exam findings, and any diagnostic results supporting the discharge/admit diagnosis, lab results, radiology results, the need for outpatient follow up, a bobbin collector, to return to the emergency department if symptoms worsen or persist or if there are any questions or concerns that arise at home. Special discussion: Based on the patient's Hx, exam, and Dx evaluation, there is no indication for emergent surgery or inpatient Tx. It is understood by the patient/guardian that if the Sx's persist or worsen they need to return immediately for re-evaluation. Based on the presenting symptoms and work-up in the emergency department, I discussed in detail the need to arrange with the PCP or specialist an outpatient procedure, esophagogastroduodenoscopy by the GI specialist, Based on the history and exam findings, there is no indication for further emergent testing or inpatient evaluation. I discussed with the patient/guardian the need to see the bobbin collector for further evaluation of the symptoms. 10/10 19:06 Order name: CBC with Diff; Complete Time: 19:43 sb4 10/10 19:06 Order name: CMP; Complete Time: 19:58 sb4 10/10 19:06 Order name: Lipase; Complete Time: 19:58 sb4 10/10 20:04 Order name: Abdomen ; Complete Time: 20:25 EDMS 10/10 19:06 Order name: IV Saline Lock; Complete Time: 19:33 sb4 10/10 19:06 Order name: Labs collected and sent; Complete Time: 19:33 sb4 Administered Medications: 19:01 Drug: GI Cocktail without - (Maalox PO 30 ml, Lidocaine Mucous Membrane 2 % 15 ss ml) PO once Route: PO; 20:13 Follow up: Response: No adverse reaction lg3 19:11 Drug: Promethazine IM 25 mg IM once Route: IM; Site: left deltoid; tm6 20:14 Follow up: Response: No adverse reaction lg3 19:34 Drug: Famotidine IVP 20 mg IVP once; dilute with 10 mL 0.9% NaCl; give over 2 minutes lg3 Route: IVP; Site: right antecubital; 20:14 Follow up: Response: No adverse reaction lg3 19:34 Drug: NS 0.9% IV 1000 ml IV at 1 bolus Per protocol; to be given as a bolus over 60 lg3 minutes Route: IV; Rate: 1 bolus; Site: right antecubital; 20:46 Follow up: Response: No adverse reaction; IV Status: Completed infusion; IV Intake: lg3 1000ml 19:34 Drug: Pantoprazole IVP 40 mg IVP once Route: IVP; Site: right antecubital; lg3 20:14 Follow up: Response: No adverse reaction lg3 Disposition: 20:09 Co-signature as Attending Physician, Ritesh Bailey MD I reviewed the patient's care rt provided by the Advanced Practice Provider and agree with the diagnosis and treatment plan. Disposition Summary: 10/10/24 20:32 Discharge Ordered Notes: Location: Home(10/10/24 20:32) sb4 Problem: an ongoing problem(10/10/24 20:32) sb4 Symptoms: are unchanged(10/10/24 20:32) sb4 Condition: Stable(10/10/24 20:32) sb4 Diagnosis - Upper abdominal pain, suspected duodenal ulcer sb4 Followup: sb4 - With: Fredy Lees MD - When: 2 - 3 days - Reason: Further diagnostic work-up, Recheck today's complaints, Re-evaluation by your physician Followup: sb4 - With: Zaire Padron MD - When: 2 - 3 days - Reason: Further diagnostic work-up, Recheck today's complaints, Re-evaluation by your physician Discharge Instructions: - Discharge Summary Sheet sb4 - Abdominal Pain, Adult sb4 - Peptic Ulcer sb4 - Peptic Ulcer Eating Plan sb4 Forms: - Patient Portal Instructions sb4 - Leadership Thank You Letter sb4 Prescriptions: - sucralfate 1 gram Oral tablet - take 1 tablet ORAL route before meals As needed; 60 tablet; Refills: 0, Product sb4 Selection Permitted - Protonix 40 mg Oral Tablet - take 1 tablet ORAL route once daily; 30 tablet; Refills: 0, Product Selection sb4 Permitted - Zofran 4 mg Oral Tablet - take 1 tablet ORAL route every 12 hours As needed; 20 tablet; Refills: 0, sb4 Product Selection Permitted - dicyclomine 10 mg Oral capsule - take 1 capsule ORAL route 3 times per day; 20 capsule; Refills: 0, Product sb4 Selection Permitted Signatures: Dispatcher [employer] EDMS Lindsey Matos, RN RN ss Lizette Cope RN RN lg3 Renee Reyez, PAAdairC PA-C sb4 Ritesh Bailey MD MD rt Jolene Ortiz RN RN me1 Elvira Garcia RN RN tm6 Corrections: (The following items were deleted from the chart) 19:06 18:48 Home sb4 sb4 19:06 18:48 an ongoing problem sb4 sb4 19:06 18:48 are unchanged sb4 sb4 19:06 18:48 Stable sb4 sb4 19:06 18:48 Upper abdominal pain, suspected duodenal ulcer sb4 sb4 19:07 19:07 CBC+H.LAB.BRZ ordered. EDMS EDMS 19:07 19:07 COMPREHENSIVE METABOLIC PANEL+C.LAB.BRZ ordered. EDMS EDMS 19:07 19:07 LIPASE+C.LAB.BRZ ordered. EDMS EDMS 19:07 19:07 Abdomen Pelvis W Con+CT.RAD.BRZ ordered. EDMS EDMS
--- NOTE | 2024-10-10 18:49 | ER ---
Nurse's Notes [facility] Name: Tom De Jesus Age: 34 yrs Sex: Male : 1990 Arrival Date: 10/10/2024 Time: 18:01 Bed 7 Private MD: Diagnosis: Upper abdominal pain, suspected duodenal ulcer Presentation: 10/10 18:36 Chief complaint: Patient states: RUQ pain, normally at night right after I eat. Has ss been going on for months. I went to a hospital in [facility] for this same thing and they said there was nothing wrong. Also n/v. Coronavirus screen: Client denies travel out of the [place] in the last 14 days. Ebola Screen: Patient negative for fever greater than or equal to 101.5 degrees Fahrenheit, and additional compatible Ebola Virus Disease symptoms Patient denies exposure to infectious person. Patient denies travel to an Ebola-affected area in the 21 days before illness onset. No symptoms or risks identified at this time. Initial Sepsis Screen: Does the patient meet any 2 criteria? No. Patient's initial sepsis screen is negative. Does the patient have a suspected source of infection? No. Patient's initial sepsis screen is negative. Risk Assessment: Do you want to hurt yourself or someone else? Patient reports no desire to harm self or others. Onset of symptoms is unknown. 18:36 Method Of Arrival: Ambulatory ss 18:36 Acuity: STEVE 3 ss Triage Assessment: 18:36 General: Appears in no apparent distress. Behavior is calm, cooperative. Pain: ss Complains of pain in right upper quadrant Pain currently is 5 out of 10 on a pain scale. at worst was 10 out of 10 on a pain scale. Pain began months ago. EENT: No signs and/or symptoms were reported regarding the EENT system. Neuro: Level of Consciousness is awake, alert, obeys commands, Oriented to person, place, time, situation. Cardiovascular: Patient's skin is warm and dry. Respiratory: Airway is patent Respiratory effort is even, unlabored, Respiratory pattern is regular, symmetrical. GI: Abdomen is flat, non-distended, Reports upper abdominal pain, nausea, vomiting. : No signs and/or symptoms were reported regarding the genitourinary system. Derm: No deficits noted. No signs and/or symptoms reported regarding the dermatologic system. Musculoskeletal: No signs and/or symptoms reported regarding the musculoskeletal system. Historical: - Allergies: 18:35 No Known Allergies; ss - PMHx: 18:35 None; ss - PSHx: 18:35 None; ss - Immunization history:: Flu vaccine is not up to date. - Infectious Disease History:: Denies. - Social history:: Smoking status: Patient reports the use of cigarette tobacco products, smokes one-half pack cigarettes per day, Patient uses alcohol, occasionally. Screenin:32 [facility] ED Fall Risk Assessment (Adult) History of falling in the last 3 months, lg3 including since admission No falls in past 3 months (0 pts) Confusion or Disorientation No (0 pts) Intoxicated or Sedated No (0 pts) Impaired Gait No (0 pts) Mobility Assist Device Used No (0 pt) Altered Elimination No (0 pt) Score/Fall Risk Level 0 - 2 = Low Risk Oriented to surroundings, Maintained a safe environment, Educated pt \T\ family on fall prevention, incl call for assistance when getting out of bed, Assessed \T\ reinforced patient's understanding of fall precautions, Provided non-skid footwear. Abuse screen: Denies threats or abuse. Denies injuries from another. Nutritional screening: No deficits noted. Tuberculosis screening: No symptoms or risk factors identified. Assessment: 19:32 General: Appears in no apparent distress. uncomfortable, Behavior is cooperative, lg3 fussy. Pain: Complains of pain in right upper quadrant Pain does not radiate. Pain currently is 10 out of 10 on a pain scale. Is continuous, Noted to be grimacing, guarding, moaning. Neuro: No deficits noted. Gill Agitation-Sedation Scale (RASS): +1 Restless Level of Consciousness is awake, alert, obeys commands, Oriented to person, place, time, situation. Cardiovascular: No deficits noted. Denies chest pain, shortness of breath, Capillary refill < 3 seconds Clubbing of nail beds is absent JVD is absent Patient's skin is warm and dry. Respiratory: No deficits noted. Airway is patent Respiratory effort is even, unlabored, Respiratory pattern is regular, symmetrical. GI: Abdomen is flat, non-distended, Bowel sounds present X 4 quads. Abd is soft X 4 quads Abdomen is tender to palpation in epigastric area, right upper quadrant and left upper quadrant Reports upper abdominal pain, cramping, nausea. : No signs and/or symptoms were reported regarding the genitourinary system. EENT: No deficits noted. No signs and/or symptoms were reported regarding the EENT system. Derm: No deficits noted. No signs and/or symptoms reported regarding the dermatologic system. Skin is intact, is healthy with good turgor, Skin is dry, Skin is normal, Skin temperature is warm. Musculoskeletal: No deficits noted. No signs and/or symptoms reported regarding the musculoskeletal system. Circulation, motion, and sensation intact. Range of motion: intact in all extremities. 20:45 Reassessment: Patient appears in no apparent distress at this time. No changes from lg3 previously documented assessment. Patient and/or family updated on plan of care and expected duration. Pain level reassessed. Patient is alert, oriented x 3, equal unlabored respirations, skin warm/dry/pink. Vital Signs: 18:35 BP 112 / 73; Pulse 63; Resp 16; Temp 98.3(O); Pulse Ox 97% on R/A; MAP 85 mmHg; Weight ss 72.57 kg; Height 5 ft. 10 in. ; Pain 5/10; 20:46 BP 109 / 77; Pulse 69; Resp 16 S; Pulse Ox 99% on R/A; lg3 18:35 Body Mass Index 22.96 (72.57 kg, 177.8 cm) ss 18:35 Pain Scale: Adult ss ED Course: 18:04 Patient arrived in ED. gm2 18:16 Renee Reyez PA-C [facility]. sb4 18:16 Ritesh Bailey MD is Attending Physician. sb4 18:36 Arm band placed on left wrist. ss 18:37 Triage completed. ss 18:44 Jolene Ortiz, ANNA is Primary Nurse. me1 18:47 Fredy Lees MD is Referral Physician. sb4 18:47 Zaire Padron MD is Referral Physician. sb4 19:32 Patient has correct armband on for positive identification. Placed in gown. Bed in low lg3 position. Call light in reach. Side rails up X 1. Client placed on continuous cardiac and pulse oximetry monitoring. NIBP monitoring applied. Door closed. Noise minimized. Warm blanket given. Pillow given. 19:32 Inserted saline lock: 20 gauge in right antecubital area, using aseptic technique. mb4 Blood collected. Flushed with 10 mL NS. 19:32 Initial lab(s) drawn, by me, sent to lab. mb4 19:32 Patient maintains SpO2 saturation greater than 95% on room air. lg3 19:33 CBC with Diff Sent. vk 19:33 CMP Sent. vk 19:33 Lipase Sent. vk 19:[address] via stretcher. lg3 20:18 Abdomen In Process Unspecified. EDMS 20:31 Fredy Lees MD is Referral Physician. sb4 20:31 Zaire Padron MD is Referral Physician. sb4 20:40 Attending Physician role handed off by Ritesh Bailey MD sp4 20:40 Edwin Torres MD is Attending Physician. sp4 20:46 No provider procedures requiring assistance completed. IV discontinued, intact, lg3 bleeding controlled, No redness/swelling at site. Pressure dressing applied. Administered Medications: 19:01 Drug: GI Cocktail without - (Maalox PO 30 ml, Lidocaine Mucous Membrane 2 % 15 ss ml) PO once Route: PO; 20:13 Follow up: Response: No adverse reaction lg3 19:11 Drug: Promethazine IM 25 mg IM once Route: IM; Site: left deltoid; tm6 20:14 Follow up: Response: No adverse reaction lg3 19:34 Drug: Famotidine IVP 20 mg IVP once; dilute with 10 mL 0.9% NaCl; give over 2 minutes lg3 Route: IVP; Site: right antecubital; 20:14 Follow up: Response: No adverse reaction lg3 19:34 Drug: NS 0.9% IV 1000 ml IV at 1 bolus Per protocol; to be given as a bolus over 60 lg3 minutes Route: IV; Rate: 1 bolus; Site: right antecubital; 20:46 Follow up: Response: No adverse reaction; IV Status: Completed infusion; IV Intake: lg3 1000ml 19:34 Drug: Pantoprazole IVP 40 mg IVP once Route: IVP; Site: right antecubital; lg3 20:14 Follow up: Response: No adverse reaction lg3 Medication: 20:47 VIS not applicable for this client. lg3 Intake: 20:46 IV: 1000ml; Total: 1000ml. lg3 Outcome: 18:48 Discharge ordered by . sb4 20:32 Discharge ordered by MD. sb4 20:46 Discharged to home ambulatory, lg3 20:46 Condition: stable 20:46 Discharge instructions given to patient, Instructed on discharge instructions, follow up and referral plans. medication usage, Demonstrated understanding of instructions, follow-up care, medications, Prescriptions given X 4, 20:47 Patient left the ED. lg3 Signatures: Dispatcher [employer] EDMS Lindsey Matos, RN RN ss Vandana Feliciano mb4 Lizette Cope RN RN lg3 Renee Reyez, PA-C PA-C sb4 Edwin Torres MD MD sp4 Jolene Ortiz RN RN nm1 Aidee Handy 2 Elvira Garcia RN RN tm6 April Haines
[2024-10-10] MEDS ORDERED: LIDOCAINE VISCOUS 2% 10ML ORAL SOLN ONE (18:50)
[2024-10-10] MEDS ORDERED: MAGNES/ALUMIN/SIMET 30ML UCUP ONE (18:50)
[2024-10-10] MEDS ORDERED: PROMETHAZINE INJ 25 MG/ML AMP ONE (19:00)
[2024-10-10] MEDS ORDERED: FAMOTIDINE 20 MG/2 ML VIAL IV ONE (19:27)
[2024-10-10] MEDS ORDERED: PANTOPRAZOLE 40 MG INJ ONE (19:27)
[2024-10-10] MEDS ORDERED: NA CHLORIDE 0.9% 1,000 ML ONE (19:27)
[2024-10-10 19:37] LABS: Absolute Basophils 0.1 K/uL (0-0.5); Absolute Eosinophils 0.1 K/uL (0-0.5); Absolute Lymphocytes (CBC) 2.5 K/uL (0.7-4.9); Absolute Monocytes 1.3 K/uL (0.1-1.3); Basophils % 0.9 % (0-1.3); Eosinophils % 0.7 % (0-4.4); Hematocrit 40.4 % (39.6-49.0); Hemoglobin 13.8 g/dL (13.6-17.9); Lymphocytes % 21.2 % (15.3-44.8); MCH 32.5 pg (27.0-35.0); MCHC 34.1 g/dL (32.0-36.0); MCV 95.3 fL (80-100); MPV 7.9 fL (7.6-11.3); Monocytes % 10.6 % (3.3-12.3); Neutrophils % 66.6 % (41.7-73.7); Nucleated Red Blood Cells % 0.1 % (0-0); Platelets 273 thou/uL (152-406); RBC Red Blood Cell Count 4.24 M/uL (4.33-5.43); Red Cell Distribution Width 12.6 % (12.1-15.2)
[2024-10-10 19:55] LABS: Albumin 4.1 g/dL (3.4-5.0); Albumin/Globulin Ratio 1.1 (1.1-1.8); Anion Gap 7.5 mEq/L (5.0-15.0); Bilirubin Total 0.3 mg/dL (0.2-1.0); Globulin 3.7 g/dL (2.3-3.5); Potassium 3.5 mEq/L (3.5-5.1); Protein, Total 7.8 g/dL (6.4-8.2)
--- NOTE | 2024-10-10 20:24 | RAD REPORT ---
EXAMINATION: CT ABDOMEN AND PELVIS WITHOUT CONTRAST CLINICAL INDICATION: Male, 34 years old.ABD PAIN TECHNIQUE: CT abdomen and pelvis was performed, without IV contrast, as per department protocol. Axia l, sagittal and coronal reconstructions were obtained. One or more of the following dose reduction techniques were used: Automated exposure control, adjustment of the mA and/or kV according to the pat ient size, and/or iterative reconstruction. Unless otherwise specified, incidental findings do not require dedicated imaging follow-up. [id number]. IV CONTRAST: Not administered. COMPARISON: 03/11/2023 FINDINGS: The lack of intravenous contrast limits the sensitivity of this exam for evaluation of solid visceral organs, vascular structures, and retroperitoneum. LOWER CHEST: The visualized lung bases are clear. LIVER: Several low-density liver lesions identified which are likely benign and are unchanged from pr ior. GALLBLADDER/BILE DUCTS: No biliary ductal dilatation.? PANCREAS: No mass, ductal dilation, or raymundo-pancreatic fluid. SPLEEN: Normal size. No focal lesion. ADRENALS: Normal; no mass. KIDNEYS AND URETERS: Normal size and contour. No hydronephrosis. URINARY BLADDER: Normal contour. GASTROINTESTINAL TRACT: Stomach is non-dilated. Small bowel has normal course and caliber. No colonic wall thickening or pericolonic inflammatory changes. Normal appendix. PERITONEUM: No free fluid. ABDOMINAL AORTA AND OTHER VESSELS: Normal caliber aorta and IVC. REPRODUCTIVE ORGANS: No pathologic process. MUSCULOSKELETAL: No acute or suspicious osseous abnormality. ADDITIONAL FINDINGS: None. IMPRESSION: No acute or significant abnormalities in the abdomen or pelvis, with evaluation limited by lack of IV contrast. Normal appendix.
[2024-10-11 01:03] VITALS: TEMP 98.3
[2024-10-11 01:05] VITALS: BP 109/77; O2SAT 99
== END 2024-10-10 20:47 | disposition home or self-care (01) ==
LOC: ER 18:01
DX: R10.13 Epigastric pain (principal)
CPT/HCPCS: 36415; 74176; 80053; 83690; 85025; 96361; 96372; 96374; 96375; 99285; J2470; J2550; J7030

== ENCOUNTER 2025-08-14 02:39 | Emergency (ER) | payer SELFPAY ==
[2025-08-14] MEDS ORDERED: MORPHINE 4 MG/ML SYR ONE (02:56)
[2025-08-14 03:40] LABS: Absolute Lymphocytes (CBC) 1.0 K/uL (0.7-4.9); Hematocrit 40.7 % (39.6-49.0); Hemoglobin 13.9 g/dL (13.6-17.9); MCH 31.8 pg (27.0-35.0); MCHC 34.3 g/dL (32.0-36.0); MCV 92.8 fL (80-100); MPV 9.6 fL (7.6-11.3); Nucleated RBC Absolute Count 0.0 (0-0); Nucleated Red Blood Cells % 0.0 % (0-0); RBC Red Blood Cell Count 4.39 M/uL (4.33-5.43); White Blood Count 13.60 thou/uL (4.3-10.9)
[2025-08-14 03:51] LABS: ALT/SGPT 19.0 U/L (16-61); AST/SGOT 12.0 U/L (15-37); Albumin 4.2 g/dL (3.4-5.0); Albumin/Globulin Ratio 1.2 (1.1-1.8); Alkaline Phosphatase 64.0 U/L (45-117); Anion Gap 6.6 mEq/L (5.0-15.0); BUN Blood Urea Nitrogen 16.0 mg/dL (7-18); Globulin 3.4 g/dL (2.3-3.5); Glucose Level 132.0 mg/dL (74-106); Lipase 16.0 U/L (13-75); Potassium 3.6 mEq/L (3.5-5.1)
--- NOTE | 2025-08-14 04:24 | ER ---
Nurse's Notes [facility] Name: Tom De Jesus Age: 35 yrs Sex: Male : 1990 Arrival Date: 08/14/2025 Time: 02:39 Bed 6 Private MD: Diagnosis: Nausea with vomiting, unspecified;Abdominal pain, Generalized Presentation: 08/14 02:41 Chief complaint: Patient states: i think i have a parasite. complaints of N/V X6 hrs. lg3 4mg zofran and 1L NS bolus administered by EMS in route. Coronavirus screen: Client denies travel out of the [place] in the last 14 days. At this time, the client does not indicate any symptoms associated with coronavirus-19. Ebola Screen: No symptoms or risks identified at this time. Initial Sepsis Screen: Does the patient meet any 2 criteria? No. Patient's initial sepsis screen is negative. Does the patient have a suspected source of infection? No. Patient's initial sepsis screen is negative. Risk Assessment: Do you want to hurt yourself or someone else? Patient reports no desire to harm self or others. Onset of symptoms was August 13, 2025. 02:41 Method Of Arrival: EMS: [facility] lg3 02:41 Acuity: STEVE 3 lg3 Triage Assessment: 02:43 General: Appears in no apparent distress. comfortable, Behavior is calm, cooperative. lg3 Pain: Complains of pain in right upper quadrant and left upper quadrant. EENT: No deficits noted. No signs and/or symptoms were reported regarding the EENT system. Neuro: No deficits noted. Gill Agitation-Sedation Scale (RASS): 0 - Alert and Calm Level of Consciousness is awake, alert, obeys commands, Oriented to person, place, time, situation. Cardiovascular: No deficits noted. Denies chest pain, shortness of breath, Capillary refill < 3 seconds Clubbing of nail beds is absent JVD is absent Patient's skin is warm and dry. Respiratory: No deficits noted. Airway is patent Respiratory effort is even, unlabored, Respiratory pattern is regular, symmetrical. GI: Abdomen is flat, non-distended, Bowel sounds present X 4 quads. Abd is soft and non tender X 4 quads. Reports nausea, vomiting. : No signs and/or symptoms were reported regarding the genitourinary system. Derm: No deficits noted. No signs and/or symptoms reported regarding the dermatologic system. Skin is intact, is healthy with good turgor, Skin is dry, Skin is normal, Skin temperature is warm. Musculoskeletal: No deficits noted. No signs and/or symptoms reported regarding the musculoskeletal system. Circulation, motion, and sensation intact. Range of motion: intact in all extremities. Historical: - Allergies: 02:43 No Known Allergies; lg3 - Home Meds: 02:43 None [Active]; lg3 - PMHx: 02:43 None; lg3 - PSHx: 02:43 None; lg3 - Immunization history:: Adult Immunizations up to date. - Infectious Disease History:: Denies. - Social history:: Smoking status: Patient reports the use of cigarette tobacco products, smokes one-half pack cigarettes per day, Patient uses alcohol, occasionally. Patient/guardian denies using street drugs. Screenin:45 [facility] ED Fall Risk Assessment (Adult) History of falling in the last 3 months, lg3 including since admission No falls in past 3 months (0 pts) Confusion or Disorientation No (0 pts) Intoxicated or Sedated No (0 pts) Impaired Gait No (0 pts) Mobility Assist Device Used No (0 pt) Altered Elimination No (0 pt) Score/Fall Risk Level 0 - 2 = Low Risk Oriented to surroundings, Maintained a safe environment, Educated pt \T\ family on fall prevention, incl call for assistance when getting out of bed, Assessed \T\ reinforced patient's understanding of fall precautions. Abuse screen: Denies threats or abuse. Denies injuries from another. Nutritional screening: No deficits noted. Tuberculosis screening: No symptoms or risk factors identified. Assessment: 02:45 General: see triage assessment. lg3 04:44 Reassessment: No changes from previously documented assessment. Patient and/or family kb4 updated on plan of care and expected duration. Pain level reassessed. Vital Signs: 02:41 BP 120 / 64; Pulse 70; Resp 16 S; Temp 98.1(O); Weight 72.57 kg (R); Height 5 ft. 10 lg3 in. (R); 03:15 BP 107 / 55; Pulse 65; Resp 18; Pulse Ox 97% on R/A; kb4 04:00 BP 106 / 60; Pulse 58; Resp 18; Pulse Ox 95% on R/A; kb4 04:43 BP 101 / 57; Pulse 57; Resp 18; Pulse Ox 95% on R/A; kb4 02:41 Body Mass Index 22.96 (72.57 kg, 177.8 cm) lg3 ED Course: 02:41 Patient arrived in ED. lg3 02:41 Lizette Cope RN is Primary Nurse. lg3 02:43 Triage completed. lg3 02:43 Arm band placed on right wrist. lg3 02:44 Gabo Aviles DO is Attending Physician. tt7 02:45 Patient has correct armband on for positive identification. Placed in gown. Bed in low lg3 position. Call light in reach. Side rails up X 1. Client placed on continuous cardiac and pulse oximetry monitoring. NIBP monitoring applied. Door closed. Noise minimized. Warm blanket given. Pillow given. 02:45 No provider procedures requiring assistance completed. Maintain EMS IV. Dressing lg3 intact. Good blood return noted. Site clean \T\ dry. Gauge \T\ site: 20 RAC. 03:02 CBC with Diff Sent. lg3 03:02 CMP Sent. lg3 03:02 Lipase Sent. lg3 04:44 Provided Education on: follow up care . kb4 04:44 IV discontinued, intact, bleeding controlled, No redness/swelling at site. Pressure kb4 dressing applied. Administered Medications: 03:02 Drug: morphine IVP or IV 4 mg IVP once over 4 mins Route: IVP; Infused Over: 4 mins; lg3 Site: right antecubital; 04:32 Follow up: Response: No adverse reaction kb4 Medication: 02:45 VIS not applicable for this client. lg3 Outcome: 04:23 Discharge ordered by . tt7 04:44 Discharged to home ambulatory, kb4 04:44 Condition: good 04:44 Discharge instructions given to patient, Instructed on discharge instructions, follow up and referral plans. Demonstrated understanding of instructions, follow-up care, 04:45 Patient left the ED. kb4 Signatures: Lizette Cope RN RN lg3 Cherry Mckinnon RN RN kb4 Gabo Aviles DO DO tt7 Corrections: (The following items were deleted from the chart) 03:03 02:41 Chief complaint: Patient states: N/V X6 hrs. 4mg zofran and 1L NS bolus lg3 administered by EMS in route lg3
--- NOTE | 2025-08-14 04:24 | EDPHYS ---
Physician Documentation [facility] Name: Tom De Jesus Age: 35 yrs Sex: Male : 1990 Arrival Date: 08/14/2025 Time: 02:39 Bed 6 Private MD: ED Physician Gabo Aviles HPI: 08/14 03:21 This 35 yrs old Male presents to ER via EMS with complaints of Vomiting. 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 Historical: - Allergies: 02:43 No Known Allergies; lg3 - Home Meds: 02:43 None [Active]; lg3 - PMHx: 02:43 None; lg3 - PSHx: 02:43 None; lg3 - Immunization history:: Adult Immunizations up to date. - Infectious Disease History:: Denies. - Social history:: Smoking status: Patient reports the use of cigarette tobacco products, smokes one-half pack cigarettes per day, Patient uses alcohol, occasionally. Patient/guardian denies using street drugs. ROS: 03:23 Constitutional: negative for fever. Cardiovascular: negative for chest pain. tt7 Respiratory: negative for shortness of breath. MS/Extremity: negative for injury and deformity. Skin: negative for rash. Neuro: negative for focal weakness. 03:23 Abdomen/GI: Positive for abdominal pain, nausea and vomiting, Exam: 03:23 Constitutional: vital signs reviewed, well appearing. Head/Face: normocephalic, tt7 atraumatic. Eyes: no conjunctival injection, anicteric sclerae. ENT: mucus membranes moist. Neck: trachea midline, no JVD, no meningismus. Chest/axilla: normal chest wall appearance and motion, nontender, no crepitus. Cardiovascular: regular rate and rhythm, no murmurs, no rubs, no lower extremity edema. Respiratory: normal respiratory effort, no accessory muscle use, lungs CTAB. Abdomen/GI: soft, nondistended, nontender, no guarding or rebound, negative Braswell's sign, no McBurney point tenderness. Back: normal ROM. Skin: warm, dry, intact, normal turgor, normal color, no rash. MS/ Extremity: normal ROM of extremities, no gross deformities. Neuro: alert and oriented with appropriate mental status, normal speech, follows commands, no focal neurologic deficits. Psych: appropriate mood and affect. Vital Signs: 02:41 BP 120 / 64; Pulse 70; Resp 16 S; Temp 98.1(O); Weight 72.57 kg (R); Height 5 ft. 10 lg3 in. (R); 03:15 BP 107 / 55; Pulse 65; Resp 18; Pulse Ox 97% on R/A; kb4 04:00 BP 106 / 60; Pulse 58; Resp 18; Pulse Ox 95% on R/A; kb4 04:43 BP 101 / 57; Pulse 57; Resp 18; Pulse Ox 95% on R/A; kb4 02:41 Body Mass Index 22.96 (72.57 kg, 177.8 cm) lg3 MDM: 02:44 Medical Screening Exam initiated tt7 03:20 Differential diagnosis: Nonspecific abd pain, gastritis, pancreatitis, viral tt7 gastroenteritis, gastroenteritis. Data reviewed: vital signs, nurses notes, old medical records, lab test result(s). 03:23 ED course: Well-appearing 35-year-old male with nausea and vomiting, overall his tt7 symptoms are chronic and he has been dealing almost the past year and has had extensive workup, his vital signs are stable, his physical exam is very reassuring, normal exam is totally benign, he is mostly concerned about having a parasite, workup initiated including CBC, CMP, lipase, will administer dose of morphine for her symptoms and follow-up on results of laboratory studies. No imaging indicated at this time. 04:25 ED course: Workup is reassuring, very mild leukocytosis of 13,000, otherwise no tt7 significant abnormalities, I reassessed the patient after medication and nausea has resolved, pain has resolved as well, given patient's resolution of pain and totally benign abdominal exam do not feel that imaging is indicated at this time, also has patient has received multiple CT scans in has received complete evaluation for this chronic issue by GI I feel that the risk of radiation outweighs any benefit at this time, after completion of the patient's emergency department evaluation, I do not suspect a life-threatening or disabling process. Patient is medically stable and not in need of emergent medical intervention. I had a detailed discussion with the patient regarding the historical points, exam findings, emergency department evaluation, diagnostic results, and the discharge diagnosis. I instructed the patient on outpatient management of their condition. I discussed the need for outpatient follow-up with a primary care physician. I informed the patient on return precautions, including the need to return to the ED if symptoms do not improve, worsen, or if there are any questions or concerns that arise at home. The patient was discharged in stable condition. 08/14 02:54 Order name: CBC with Diff; Complete Time: 03:44 tt7 08/14 02:54 Order name: CMP; Complete Time: 04:07 tt7 08/14 02:54 Order name: Lipase; Complete Time: 04:07 tt7 08/14 02:54 Order name: IV Saline Lock; Complete Time: 03:02 tt7 08/14 02:54 Order name: Labs collected and sent; Complete Time: 03:02 tt7 Administered Medications: 03:02 Drug: morphine IVP or IV 4 mg IVP once over 4 mins Route: IVP; Infused Over: 4 mins; lg3 Site: right antecubital; 04:32 Follow up: Response: No adverse reaction kb4 Disposition: 04:42 Co-signature as Attending Physician, Gabo Aviles DO. 7 Disposition Summary: 08/14/25 04:23 Discharge Ordered Notes: Location: Home tt7 Problem: chronic tt7 Symptoms: have improved tt7 Condition: Stable tt7 Diagnosis - Nausea with vomiting, unspecified tt7 - Abdominal pain, Generalized tt7 Followup: tt7 - With: Emergency Department - When: As needed - Reason: Followup: tt7 - With: Private Physician - When: 2 - 3 days - Reason: Recheck today's complaints, Re-evaluation by your physician Discharge Instructions: - Discharge Summary Sheet tt7 - Abdominal Pain, Adult tt7 - Nausea and Vomiting, Adult, [id number] tt7 Forms: - Medication Reconciliation Form tt7 - Antibiotic Education tt7 - Prescription Opioid Use tt7 - Patient Portal Instructions tt7 - Leadership Thank You Letter tt7 Signatures: Dispatcher [employer] EDMS Lizette Cope RN RN lg3 Gabo Aviles, DO tt7 Cherry Mckinnon RN kb4 Corrections: (The following items were deleted from the chart) 02:54 02:54 CBC+H.LAB.BRZ ordered. EDMS EDMS 02:54 02:54 COMPREHENSIVE METABOLIC PANEL+C.LAB.BRZ ordered. EDMS EDMS 02:54 02:54 LIPASE+C.LAB.BRZ ordered. EDMS EDMS 02:54 02:54 Ova and Parasites+MR.LAB.BRZ ordered. EDMS EDMS 03:23 03:21 . tt7 tt7 03:23 03:21 The patient presents to the emergency department with nausea, that is moderate, tt7 vomiting, tt7
[2025-08-14 04:52] VITALS: TEMP 98.1
[2025-08-14 04:56] VITALS: O2SAT 95
[2025-08-14 04:58] VITALS: BP 101/57
== END 2025-08-14 04:45 | disposition home or self-care (01) ==
LOC: ER 02:39
DX: R11.2 Nausea with vomiting, unspecified (principal); R10.84 Generalized abdominal pain
CPT/HCPCS: 36415; 80053; 83690; 85025; 96374; 99284

== ENCOUNTER 2025-08-17 07:37 | Emergency (ER) | payer SELFPAY ==
--- NOTE | 2025-08-17 08:12 | EDPHYS ---
Physician Documentation [facility] Name: Tom De Jesus Age: 35 yrs Sex: Male : 1990 Arrival Date: 08/17/2025 Time: 07:37 Bed 6 Private MD: ED Physician Merritt Tierney HPI: 08/17 08:05 This 35 yrs old Male presents to ER via Ambulatory with complaints of Abdominal Pain. sp3 08:05 35-year-old male with no significant past medical history except chronic undiagnosed sp3 abdominal pain. Patient's had extensive workup including upper endoscopy, CT, MRI, multiple laboratory workups, including a visit 3 days ago here at our facility which yielded negative workup and subsequent discharge. At that visit they wanted to obtain stool samples and patient was unable to. He returns today with stool sample that he would like us to test for culture and parasites etc. that prior workup wanted to do. Patient still states that the pain is there but is no different than it is normally. He denies any fever, headache, neck pain, chest pain, shortness of breath, significant vomiting, diarrhea, melena, syncope, rash, or any other signs or symptoms on ROS at this time. 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 He has no weight loss or other findings.. Historical: - Allergies: 08:00 No Known Allergies; mb9 - Home Meds: 08:00 None [Active]; mb9 - PMHx: 08:00 None; mb9 - PSHx: 08:00 None; mb9 - Immunization history:: Adult Immunizations up to date. - Infectious Disease History:: Denies. - Social history:: Smoking status: Patient denies any tobacco usage or history of. ROS: 08:08 Constitutional: Negative for fever, chills, and weight loss, Eyes: Negative for injury, sp3 pain, redness, and discharge, ENT: Negative for injury, pain, and discharge, Neck: Negative for injury, pain, and swelling, Cardiovascular: Negative for chest pain, palpitations, and edema, Respiratory: Negative for shortness of breath, cough, wheezing, and pleuritic chest pain, Back: Negative for injury and pain, MS/Extremity: Negative for injury and deformity, Skin: Negative for injury, rash, and discoloration, Neuro: Negative for headache, weakness, numbness, tingling, and seizure, Psych: Negative for depression, anxiety, suicide ideation, homicidal ideation, and hallucinations, Allergy/Immunology: Negative for hives, rash, and allergies, Endocrine: Negative for neck swelling, polydipsia, polyuria, polyphagia, and marked weight changes, Hematologic/Lymphatic: Negative for swollen nodes, abnormal bleeding, and unusual bruising, 08:08 All other systems are negative, Exam: 08:09 Constitutional: This is a well developed, well nourished patient who is awake, alert, sp3 and in no acute distress. Head/Face: Normocephalic, atraumatic. Eyes: Pupils equal round and reactive to light, extra-ocular motions intact. Lids and lashes normal. Conjunctiva and sclera are non-icteric and not injected. Cornea within normal limits. Periorbital areas with no swelling, redness, or edema. Neck: Trachea midline, no thyromegaly or masses palpated, and no cervical lymphadenopathy. Supple, full range of motion without nuchal rigidity, or vertebral point tenderness. No Meningismus. Chest/axilla: Normal chest wall appearance and motion. Nontender with no deformity. No lesions are appreciated. Cardiovascular: Regular rate and rhythm with a normal S1 and S2. No gallops, murmurs, or rubs. Normal PMI, no JVD. No pulse deficits. Respiratory: Lungs have equal breath sounds bilaterally, clear to auscultation and percussion. No rales, rhonchi or wheezes noted. No increased work of breathing, no retractions or nasal flaring. Back: No spinal tenderness. No costovertebral tenderness. Full range of motion. Skin: Warm, dry with normal turgor. Normal color with no rashes, no lesions, and no evidence of cellulitis. MS/ Extremity: Pulses equal, no cyanosis. Neurovascular intact. Full, normal range of motion. Neuro: Awake and alert, GCS 15, oriented to person, place, time, and situation. Cranial nerves II-XII grossly intact. Motor strength 5/5 in all extremities. Sensory grossly intact. Cerebellar exam normal. Normal gait. Psych: Awake, alert, with orientation to person, place and time. Behavior, mood, and affect are within normal limits. 08:09 Abdomen/GI: Mild pain to palpation without peritoneal signs, rebound or guarding. Soft abdomen. Vital signs are normal., Vital Signs: 07:57 BP 113 / 68 LA Sitting; Pulse 79; Resp 18; Temp 98.1(O); Pulse Ox 99% on R/A; jp5 07:58 Weight 72.57 kg; Height 5 ft. 10 in. ; Pain 5/10; mb9 07:58 Body Mass Index 22.96 (72.57 kg, 177.8 cm) mb9 07:58 Pain Scale: Adult mb9 MDM: 07:52 Medical Screening Exam initiated sp3 08:09 Data reviewed: vital signs, nurses notes, old medical records, lab test result(s). ED sp3 course: 35-year-old male with PMH above now returns with stool sample. Differential diagnosis includes chronic abdominal pain, other undiagnosed intraabdominal pathology, to a much lesser degree parasitic infection. No prophylactic intervention will be initiated. We will send stool studies and discharge patient on Zofran and Bentyl.. 08/17 08:11 Order name: Fecal Leukocyte Stain sp3 08/17 08:11 Order name: Ova And Parasites sp3 08/17 08:11 Order name: Stool Culture sp3 Administered Medications: No medications were administered Disposition Summary: 08/17/25 08:11 Discharge Ordered Notes: Location: Home sp3 Condition: Stable sp3 Diagnosis - Abdominal pain sp3 Followup: sp3 - With: Private Physician - When: Upon discharge from the Emergency Department - Reason: Recheck today's complaints, Continuance of care Discharge Instructions: - Discharge Summary Sheet sp3 - Abdominal Pain, Adult sp3 Forms: - Medication Reconciliation Form sp3 - Antibiotic Education sp3 - Prescription Opioid Use sp3 - Patient Portal Instructions sp3 - Leadership Thank You Letter sp3 Prescriptions: - ondansetron 4 mg Oral Tablet,disintegrating - take 1 tablet ORAL route every 6 hours as needed for nausea and vomiting; 20 sp3 tablet; Refills: 0, Product Selection Permitted - dicyclomine 10 mg Oral capsule - take 1 capsule ORAL route 3 times per day; 20 capsule; Refills: 0, Product sp3 Selection Permitted Signatures: Dispatcher [employer] EDMerritt Vieyra MD MD sp3 Danelle Dhillon RN RN mb9 Corrections: (The following items were deleted from the chart) 08:11 08: Fecal Leukocyte Stain+BA.LAB.ANDRE ordered. EDMS EDMS 08: Ova and Parasites+MR.LAB.ANDRE ordered. EDMS EDMS 08:11 Stool Culture+BA.LAB.ANDRE ordered. EDMS EDMS
--- NOTE | 2025-08-17 08:12 | ER ---
Nurse's Notes [facility] Name: Tom De Jesus Age: 35 yrs Sex: Male : 1990 Arrival Date: 08/17/2025 Time: 07:37 Bed 6 Private MD: Diagnosis: Abdominal pain Presentation: 08/17 07:58 Chief complaint: Patient states: "I was here the other day and they didn't find mb9 anything wrong with me. I've had abdominal pain on the right side for 3-6 months with N/V/constipation. I was told to give a stool sample for the next step.". Coronavirus screen: Vaccine status: Patient reports being unvaccinated. Ebola Screen: No symptoms or risks identified at this time. Initial Sepsis Screen: Does the patient meet any 2 criteria? No. Patient's initial sepsis screen is negative. Does the patient have a suspected source of infection?. Risk Assessment: Do you want to hurt yourself or someone else? Patient reports no desire to harm self or others. Onset of symptoms was August 17, 2025. 07:58 Method Of Arrival: Ambulatory mb9 07:58 Acuity: STEVE 4 mb9 Triage Assessment: 08:00 General: Appears in no apparent distress. Behavior is calm, cooperative. Pain: mb9 Complains of pain in abdomen Pain radiates to RUQ/RLQ Pain currently is 5 out of 10 on a pain scale. Quality of pain is described as throbbing, Pain began suddenly, Is continuous. EENT: No signs and/or symptoms were reported regarding the EENT system. Neuro: Gill Agitation-Sedation Scale (RASS): 0 - Alert and Calm Level of Consciousness is awake, alert, obeys commands, Oriented to person, place, time, situation, Appropriate for age. Cardiovascular: Patient's skin is warm and dry. Respiratory: Airway is patent Respiratory effort is even, unlabored, Respiratory pattern is regular, symmetrical. GI: Abdomen is flat, non-distended, Reports lower abdominal pain, upper abdominal pain, constipation, nausea, vomiting. : No signs and/or symptoms were reported regarding the genitourinary system. Derm: Skin is pink, warm \\T\\ dry. Musculoskeletal: Range of motion: intact in all extremities. Historical: - Allergies: 08:00 No Known Allergies; mb9 - Home Meds: 08:00 None [Active]; mb9 - PMHx: 08:00 None; mb9 - PSHx: 08:00 None; mb9 - Immunization history:: Adult Immunizations up to date. - Infectious Disease History:: Denies. - Social history:: Smoking status: Patient denies any tobacco usage or history of. Screenin:01 [facility] ED Fall Risk Assessment (Adult) History of falling in the last 3 months, mb9 including since admission No falls in past 3 months (0 pts) Confusion or Disorientation No (0 pts) Intoxicated or Sedated No (0 pts) Impaired Gait No (0 pts) Mobility Assist Device Used No (0 pt) Altered Elimination No (0 pt) Score/Fall Risk Level 0 - 2 = Low Risk Oriented to surroundings, Maintained a safe environment, Educated pt \\T\\ family on fall prevention, incl call for assistance when getting out of bed. Abuse screen: Denies threats or abuse. Nutritional screening: No deficits noted. Tuberculosis screening: No symptoms or risk factors identified. Assessment: 08:01 Reassessment: see triage assessment. mb9 Vital Signs: 07:57 BP 113 / 68 LA Sitting; Pulse 79; Resp 18; Temp 98.1(O); Pulse Ox 99% on R/A; jp5 07:58 Weight 72.57 kg; Height 5 ft. 10 in. ; Pain 5/10; mb9 07:58 Body Mass Index 22.96 (72.57 kg, 177.8 cm) mb9 07:58 Pain Scale: Adult mb9 ED Course: 07:42 Patient arrived in ED. gm2 07:44 Merritt Tierney MD is Attending Physician. sp3 07:58 Danelle Dhillon RN is Primary Nurse. mb9 08:00 Triage completed. mb9 08:00 Arm band placed on. mb9 08:01 Bed in low position. Call light in reach. Side rails up X 1. Provided Education on: mb9 press call light if needing anything. Client placed on continuous cardiac and pulse oximetry monitoring. NIBP monitoring applied. 08:02 No provider procedures requiring assistance completed. mb9 08:32 Stool Culture Sent. jp5 08:32 Ova And Parasites Sent. jp5 08:32 Fecal Leukocyte Stain Sent. jp5 Administered Medications: No medications were administered Medication: 08:01 VIS not applicable for this client. mb9 Outcome: 08:11 Discharge ordered by . sp3 08:32 Discharged to home ambulatory, jp5 08:32 Condition: good 08:32 Discharge instructions given to patient, Instructed on discharge instructions, follow up and referral plans. medication usage, Demonstrated understanding of instructions, follow-up care, medications, Prescriptions given X 2, 08:32 Patient left the ED. jp5 Signatures: Merritt Tierney MD MD sp3 Danelle Dhillon RN RN mb9 Aidee Handy 2 Kadie Isbell RN RN jp5 Corrections: (The following items were deleted from the chart) 08:07 07:58 Chief complaint: Patient states: "I was here the other day and they didn't find mb9 anything wrong with me. I've had abdominal pain on the right side for 3-6 months with N/V/constipation. mb9 08:07 07:58 Acuity: STEVE 3 mb9 mb9
[2025-08-17 09:21] VITALS: TEMP 97.9; O2SAT 100
[2025-08-17 09:28] VITALS: BP 132/78
== END 2025-08-17 08:32 | disposition home or self-care (01) ==
LOC: ER 07:37
DX: R10.9 Unspecified abdominal pain (principal)
CPT/HCPCS: 87045; 87046; 87177; 87209; 89055; 99283